=== PATIENT | female | born 1945 | race Caucasian/White ===

== ENCOUNTER → 2016-07-10 | Outpatient (CLI) | payer OTHER ==
[~2016-07-10] MED LIST: CHOL1TAB42 PO; MULT-506 PO; SERT-234 PO; ZCR40 PO
[2016-07-10 17:00] LABS: HEMATOCRIT 38.6 % (37-47); MEAN CELL VOLUME 94.8 fL (80-100); MEAN CORPUSCULAR HGB CONC 32.6 g/dl (32-36); MEAN PLATELET VOLUME 11.4 fL (7.4-10.4); PLATELET COUNT 159 K/uL (130-400); RED BLOOD COUNT 4.07 M/uL (4.2-5.4); WHITE BLOOD COUNT 5.65 K/uL (4.8-10.8)
[2016-07-10 17:20] LABS: ALT/SGPT 25 U/L (12-78); BLOOD UREA NITROGEN 22 mg/dl (7-18); BUN/CREATININE RATIO 27.3 (10-20); CALCIUM 9.2 mg/dl (8.5-10.1); CARBON DIOXIDE 26 mmol/L (21-32); CHLORIDE 107 mmol/L (98-107); CHOLESTEROL 157 mg/dl (0-200); GLUCOSE 100 mg/dl (70-99); POTASSIUM 3.7 mmol/L (3.5-5.1); SODIUM 142 mmol/L (136-145); TRIGLYCERIDES 134 mg/dl (0-150); VERY LOW DENSITY LIPOPROT CALC 27 mg/dl
[2016-07-10 17:31] LABS: ALB/GLOB RATIO 1.1 (0.9-2); ALKALINE PHOSPHATASE 71 U/L (45-117); AST/SGOT 19 U/L (15-37); CHOLESTEROL/HDL RATIO 2.8; HDL CHOLESTEROL 57 mg/dl; LDL CHOLESTEROL CALCULATED 73 mg/dl
== END | disposition home or self-care (01) ==
LOC: C.LABBC 13:54
PROVIDERS: ATTEND Internal Medicine Geriatric Medicine
DX: M19.90 Unspecified osteoarthritis, unspecified site (principal); E78.5 Hyperlipidemia, unspecified; M81.0 Age-related osteoporosis without current pathological fracture; I35.1 Nonrheumatic aortic (valve) insufficiency; M79.7 Fibromyalgia

== ENCOUNTER → 2016-07-24 | Outpatient (CLI) | payer OTHER ==
--- NOTE | 2016-07-24 15:10 | DIAGNOSTIC IMAGING REPORT ---
CHEST 2 VIEWS ROUTINE CLINICAL HISTORY: Z00.00 Health [id number] Acute [id number] BronchitisRAD dyspnea COMPARISON STUDY: 08/30/2015 FINDINGS: Mild emphysematous change. Diaphragms are smooth. There are no focal infiltrates. Mild stable fibrocalcific change pulmonary apices. IMPRESSION: Chronic change. No acute process. Electronically signed by: Kendell Fang M.D. 07/24/2016 3:09 PM Dictated Date/Time: 07/24/2016 3:08 PM
== END | disposition home or self-care (01) ==
LOC: C.RADBC 14:14
PROVIDERS: ATTEND Internal Medicine Geriatric Medicine
DX: Z00.00 Encounter for general adult medical examination without abnormal findings (principal); J20.9 Acute bronchitis, unspecified; J40 Bronchitis, not specified as acute or chronic

== ENCOUNTER → 2016-07-25 | Outpatient (CLI) | payer OTHER ==
--- NOTE | 2016-07-25 11:33 | DIAGNOSTIC IMAGING REPORT ---
RIGHT SHOULDER MIN 2 VIEWS ROUTINE CLINICAL HISTORY: Right shoulder pain. COMPARISON: None FINDINGS: Alignment of the right shoulder is anatomic. There is no acute fracture or suspicious lesion. There is moderate AC joint arthritis and mild glenohumeral joint arthritis. IMPRESSION: 1. Moderate right AC joint arthritis and mild glenohumeral joint arthritis. 2. No acute fracture or dislocation of the right shoulder. Electronically signed by: Alex Vu M.D. 07/25/2016 11:31 AM Dictated Date/Time: 07/25/2016 11:30 AM
== END | disposition home or self-care (01) ==
LOC: C.RADBC 11:16
PROVIDERS: ATTEND Internal Medicine
DX: M25.511 Pain in right shoulder (principal); M19.011 Primary osteoarthritis, right shoulder

== ENCOUNTER → 2017-05-27 | Outpatient (CLI) | payer OTHER ==
--- NOTE | 2017-05-27 14:35 | MAMMOGRAPHY REPORT ---
BILATERAL DIGITAL SCREENING MAMMOGRAM TOMOSYNTHESIS WITH CAD: 05/27/2017 CLINICAL HISTORY: Routine screening. Patient has no complaints. TECHNIQUE: Breast tomosynthesis in addition to standard 2D mammography was performed. Current study was also evaluated with a Computer Aided Detection (CAD) system. COMPARISON: Comparison is made to exams dated: 03/18/2016 mammogram, 03/12/2015 mammogram, 02/28/2014 mammogram, 01/31/2013 mammogram, 01/25/2012 mammogram, and 01/21/2011 mammogram - [facility]. BREAST COMPOSITION: The tissue of both breasts is extremely dense, which lowers the sensitivity of m ammography. FINDINGS: No suspicious masses, calcifications, or areas of architectural distortion are noted in ei ther breast. There has been no significant interval change compared to prior exams. IMPRESSION: ACR BI-RADS CATEGORY 1: NEGATIVE There is no mammographic evidence of malignancy. A 1 year screening mammogram is recommended. The pa tient will receive written notification of the results. Approximately 10% of breast cancers are not detected with mammography. A negative mammographic report should not delay biopsy if a clinically suggestive mass is present. Fernanda Toney M.D. ah/:05/27/2017 12:36:12 Vacuum Forming Machine Operator: Sara ERWIN(Parviz)(M), [facility] letter sent: Normal 1/2 BI-RADS Code: ACR BI-RADS Category 1: Negative
== END | disposition home or self-care (01) ==
LOC: C.MAMM 12:06
PROVIDERS: ATTEND Internal Medicine Geriatric Medicine
DX: Z12.31 Encounter for screening mammogram for malignant neoplasm of breast (principal)

== ENCOUNTER → 2017-07-08 | Outpatient (CLI) | payer OTHER ==
[2017-07-08 13:17] LABS: BASO % 0.6 %; BASO ABS # 0.03 K/uL (0-0.2); EOS % 4.1 %; EOS ABS # 0.21 K/uL (0-0.5); HEMATOCRIT 37.9 % (37-47); HEMOGLOBIN 12.6 g/dL (12.0-16.0); IG# 0.01 K/uL (0.00-0.02); LYMPH % 33.3 %; LYMPH ABS # 1.71 K/uL (1.2-3.4); MEAN CELL VOLUME 98.7 fL (80-100); MEAN CORPUSCULAR HEMOGLOBIN 32.8 pg (25-34); MEAN CORPUSCULAR HGB CONC 33.2 g/dl (32-36); MEAN PLATELET VOLUME 11.1 fL (7.4-10.4); MONO % 13.1 %; MONO ABS # 0.67 K/uL (0.11-0.59); NEUT % 48.7 %; PLATELET COUNT 151 K/uL (130-400); RED CELL DISTRIBUTION WIDTH CV 13.8 % (11.5-14.5); RED CELL DISTRIBUTION WIDTH SD 49.7 fL (36.4-46.3); WHITE BLOOD COUNT 5.13 K/uL (4.8-10.8)
[2017-07-08 14:20] LABS: BLOOD UREA NITROGEN 17 mg/dl (7-18); CALCIUM 8.6 mg/dl (8.5-10.1); CARBON DIOXIDE 26 mmol/L (21-32); CREATININE 0.75 mg/dl (0.60-1.20); GLUCOSE 91 mg/dl (70-99); POTASSIUM 3.9 mmol/L (3.5-5.1); SODIUM 141 mmol/L (136-145)
[2017-07-08 14:31] LABS: CHOLESTEROL 242 mg/dl (0-200); LDL CHOLESTEROL CALCULATED 147 mg/dl
== END | disposition home or self-care (01) ==
LOC: C.LABBC 11:16
PROVIDERS: ATTEND Internal Medicine Geriatric Medicine
DX: E78.5 Hyperlipidemia, unspecified (principal); M81.0 Age-related osteoporosis without current pathological fracture; M79.7 Fibromyalgia

== ENCOUNTER → 2017-08-09 | Outpatient (CLI) | payer OTHER | END | disposition home or self-care (01) | LOC: C.MAMM 08:02 | PROVIDERS: ATTEND Internal Medicine Geriatric Medicine | DX: M81.0 Age-related osteoporosis without current pathological fracture (principal); M85.88 Other specified disorders of bone density and structure, other site ==

== ENCOUNTER 2018-11-02 05:49 | Inpatient (IN) ==
--- NOTE | 2018-10-20 14:01 | PAT Medication Instructions ---
Medication Instructions Date of Service October 20, 2018 Home Medications cholecalciferol (vitamin D3) [Vitamin D3] 4,000 unit PO QAM sertraline 100 mg tablet 150 mg PO DAILY simvastatin 20 mg tablet 20 mg PO DAILY DO NOT take the morning of surgery cholecalciferol (vitamin D3) [Vitamin D3] 4,000 unit PO QAM Take morning of surgery With a small sip of water, OTHERWISE NOTHING TO EAT OR DRINK AFTER MIDNIGHT: sertraline 100 mg tablet 150 mg PO DAILY simvastatin 20 mg tablet 20 mg PO DAILY Other Notes If you have any questions please call us at [phone] or [phone] or [phone] or [phone]
--- NOTE | 2018-10-21 11:22 | Anesthesiology Consultation ---
Date of Service October 21, 2018 Assessment & Plan (1) Encounter for pre-operative examination: - PCP: 10/24/18: "Using the revised cardiac index, she is at low risk for adverse events with non cardiac surgery. She is acceptable risk for surgery." Chart Review Chart Review: Acceptable Risk for Surgery and Patient seen in Pre Admission Testing Teaching & Discussion Pre-Anesthesia Teaching/Discussion Notes: Instructed NPO after midnight before surgery,except medications with 15 cc of water. Medication instructions provided according to the PAT guidelines. History Surgery Operation Date: 11/02/18 10:25 Proposed Procedures p L3-L5 Decompression and Fusion, Spinal Cord Monitoring - Vinicio Herbert, Height/Weight Height: 5 ft 1 in Weight: 55.7 kg Allergies Allergy/AdvReac Type Severity Reaction Status Date / Time simvastatin [From Zocor] AdvReac MUSCULAR Verified 10/24/18 15:25 PAIN sulfamethoxazole AdvReac GI UPSET Verified 10/24/18 15:25 [From Bactrim] trimethoprim [From Bactrim] AdvReac GI UPSET Verified 10/24/18 15:25 Medications Home Medications Medication Instructions Recorded Confirmed Last Taken cholecalciferol (vitamin D3) 4,000 unit PO QAM 07/09/18 10/24/18 07/09/18 [Vitamin D3] sertraline 100 mg tablet 150 mg PO DAILY tab 10/18/18 10/24/18 Unknown simvastatin 20 mg tablet 20 mg PO DAILY #90 tab 10/18/18 10/24/18 Unknown Past Medical History Medical History Anxiety Depression Hx SBO PARTIAL (2015)- MEDICALLY MANAGED Hyperlipidemia Numbness and tingling RIGHT LE/BUTTOCK Exercise / Class Metabolic Activity II 4-5 Yardwork/Stairs/Walk up hill Past Family History Family History Unknown Colon cancer Mother Colon cancer Father Gastric cancer Other No pertinent family history Past Surgical History Surgical History History of abdominal surgery CYST EXCISION History of appendectomy History of open reduction and internal fixation (ORIF) procedure LEFT DISTAL RADIUS Hx of tonsillectomy Hx of tubal ligation Past Anesthesia History No Hx of Anesthesia Complications (EXCEPT POST-OP NAUSEA) and No Family Hx of Anesthesia Complications History of PONV History of PONV and Hx of Motion Sickness Social History Smoking Status: Never smoker Do You Dip or Chew Tobacco: No Hx Alcohol Use: Yes Alcohol type: beer and hard liquor alcohol intake frequency: a few times a week Hx Substance Use: No substance use type: does not use Review of Systems Reflux with certain food triggers. Patient denies chest pain, shortness of breath, dyspnea on exertion, cough, wheezing, palpitations. Physical Exam Vital Signs VITALS BP 115/72 P 71 TEMP 98.2 SP02 95%RA RESP 18 PHYSICAL Full neck and c-spine range of motion. Full TMJ range of motion. TMD 3 finger breaths Mallampati Score 2 Dentition: missing molars, Lungs: clear throughout to auscultation Cardiac: regular rate and rhythm, no murmurs noted Spine: normal Carotid arteries: negative bruit Extremities: no edema Testing Laboratory Results 10/21/18 11:36 10/21/18 11:36 PT 10.7 Seconds (9.0-12.0) 10/21/18 11:36 INR 1.0 (0.9-1.1) 10/21/18 11:36 APTT 25.0 Seconds (21.0-31.0) 10/21/18 11:36 Urine Color Dark Yellow 10/21/18 11:36 Urine Appearance Clear (Clear) 10/21/18 11:36 Urine pH 5.0 (4.5-7.5) 10/21/18 11:36 Ur Specific [place] 1.026 (1.000-1.030) 10/21/18 11:36 Urine Protein Negative (Negative) 10/21/18 11:36 Urine Glucose (UA) Negative (Negative) 10/21/18 11:36 Urine Ketones Trace (Negative) H 10/21/18 11:36 Urine Nitrite Negative (Negative) 10/21/18 11:36 Ur Leukocyte Esterase Negative (Negative) 10/21/18 11:36 Blood Type A Positive 10/21/18 11:36 Antibody Screen NEGATIVE 10/21/18 11:36 Electrocardiogram Date: 07/09/18 NSR at 62bpm. Septal infarct (cited on/before 08/30/2015 per cardio). Chest X-Ray Date: 07/09/18 Findings: + NAD Atherosclerotic calcification of the thoracic aorta. Chronic interstitial thickening and biapical scarring are similar to previous. No airspace consolida tion or large pleural effusion is identified.
[2018-10-21 12:53] LABS: Basophils # (auto) 0.03 K/uL (0-0.2); Basophils % (auto) 0.5 %; Eosinophils % (auto) 3.5 %; Hematocrit (blood only) 36.1 % (37-47); Hemoglobin 11.8 g/dL (12.0-16.0); Immature Granulocytes # (auto) 0.01 K/uL (0.00-0.02); Immature Granulocytes % (auto) 0.2 %; Lymphocytes # (auto) 1.78 K/uL (1.2-3.4); Lymphocytes % (auto) 31.5 %; Mean Corpuscular Hgb Conc 32.7 g/dL (32-36); Mean Corpuscular Volume 98.6 fL (80-100); Mean Platelet Volume 10.4 fL (7.4-10.4); Monocytes % (auto) 10.6 %; Neutrophils # (auto) 3.03 K/uL (1.4-6.5); Neutrophils % (auto) 53.7 %; Platelet Count 189 K/uL (130-400); RDW Standard Deviation 50.4 fL (36.4-46.3); Red Blood Count 3.66 M/uL (4.2-5.4); White Blood Count 5.65 K/uL (4.8-10.8)
[2018-10-21 12:57] LABS: Appearance Urine Clear (Clear); Bilirubin Urine Negative (Negative); Blood Urine Negative (Negative); Color Urine Dark Yellow; Glucose Urine UA Negative (Negative); Ketones Urine Trace (Negative); Leukocyte Esterase Urine Negative (Negative); Nitrite Urine Negative (Negative); Protein Urine Negative (Negative); Specific Gravity Urine 1.026 (1.000-1.030); Urobilinogen Urine Negative (Negative)
[2018-10-21 13:02] LABS: BUN Creatinine Ratio 20.7 (10-20); Calcium 9.1 mg/dl (8.5-10.1); Creatinine Clr Calc Pharmacy 45.4 ml/min; Est GFR (African American) 81.7; Est GFR (Non-African American) 70.5; Potassium 4.1 mmol/L (3.5-5.1)
[2018-10-21 13:06] LABS: Partial Thromboplastin Ratio 0.9; Prothrombin Time 10.7 Seconds (9.0-12.0)
[2018-11-02] MEDS ORDERED: LR 15ML/HR IV SCH (06:00)
[2018-11-02] MEDS ORDERED: ACETAMINOPHEN 500 MG TAB PO SCH (06:00)
[2018-11-02] MEDS ORDERED: CEFAZOLIN 1000MG 1,000 MG/7.5 ML SYR IV SCH ×2 (06:00)
[2018-11-02] MEDS ORDERED: CeleBREX 200 MG CAP PO SCH (06:00)
[2018-11-02] MEDS ORDERED: GABAPENTIN 300 MG CAP PO SCH (06:00)
[2018-11-02] MEDS ORDERED: ATROPINE SULFATE 0.1 MG/ML 10ML SYR IV PRN (07:22)
[2018-11-02] MEDS ORDERED: ePHEDrine sulfate 50 MG/ML AMP IV PRN (07:22)
[2018-11-02] MEDS ORDERED: BUPIVACAINE/EPINEPHRINE 0.5% MPF 1:200,000 30 ML VIAL ONE (07:23)
[2018-11-02] MEDS ORDERED: BACITRACIN INJ 50,000 UNIT VIAL ONE (07:23)
[2018-11-02] MEDS ORDERED: SCOPOLAMINE 1.5 MG TDSY ONE (07:25)
[2018-11-02] MEDS ORDERED: fentaNYL citrate 100 MCG/2 ML VIAL ONE ×3 (07:34→10:11)
[2018-11-02] MEDS ORDERED: MIDAZOLAM HCL 1 MG/ML 2ML VIAL ONE (07:34)
--- NOTE | 2018-11-02 07:37 | History & Physical Bridge Note ---
Date of Service November 02, 2018 History & Physical Bridge Note I have examined the patient, reviewed the History & Physical and in the interval since the performance of the History & Physical I have noted the following changes of clinical significance: no changes noted
--- NOTE | 2018-11-02 07:38 | History & Physical Report ---
Date of Service November 02, 2018 Assessment & Plan (1) Spinal stenosis, lumbar region with neurogenic claudication: L3-L5 decompression and fusion Present on Admission?: Yes History of Present Illness Chief Complaint: Back and leg pain Primary Care Provider: Jitendra Mercer MD This is a 73-year-old female that presents with chronic persistent back and bilateral leg pain. After failing extensive course of nonoperative care is here for surgical intervention. Allergies Allergy/AdvReac Type Severity Reaction Status Date / Time simvastatin [From Zocor] AdvReac MUSCULAR Verified 11/02/18 06:14 PAIN sulfamethoxazole AdvReac GI UPSET Verified 11/02/18 06:14 [From Bactrim] trimethoprim [From Bactrim] AdvReac GI UPSET Verified 11/02/18 06:14 Home Medications Home Medications Medication Instructions Recorded Confirmed Type cholecalciferol (vitamin D3) 4,000 unit PO QAM 07/09/18 11/02/18 History [Vitamin D3] simvastatin 20 mg tablet 20 mg PO DAILY #90 tab 10/18/18 11/02/18 History sertraline 100 mg tablet 150 mg PO DAILY #135 tab 10/29/18 11/02/18 Rx Past Med/Surg History Medical History Anxiety Depression Hx SBO PARTIAL (2015)- MEDICALLY MANAGED Hyperlipidemia Numbness and tingling RIGHT LE/BUTTOCK Surgical History History of open reduction and internal fixation (ORIF) procedure LEFT DISTAL RADIUS Hx of tonsillectomy Hx of tubal ligation History of abdominal surgery CYST EXCISION History of appendectomy Family History Unknown Colon cancer Mother Colon cancer Father Gastric cancer Other No pertinent family history Social History Preferred Language: Indonesian Communication Ability: Effective Beliefs That Will Affect Care: None Current Living Situation: Spouse Feels Safe at Home: Yes Safety Concerns: Feels Safe At This Time Smoking Status: Never smoker Do You Dip or Chew Tobacco: No Second Hand Exposure: No Hx Alcohol Use: Yes Alcohol type: beer and hard liquor Hx Substance Use: No Results & Data Vital Signs (Past 12 Hours) Vital Signs Temp Pulse Resp BP Pulse Ox 11/02/18 06:18 36.5 C 60 18 146/80 H 97
[2018-11-02] MEDS ORDERED: SODIUM CHLORIDE 0.9% 250 ML IV PRN (07:55)
[2018-11-02] MEDS ORDERED: HYDROmorphone INJ 2 MG/ML SYR/VIAL ONE ×2 (08:43→10:16)
[2018-11-02] MEDS ORDERED: ROCURONIUM BROMIDE 10 MG/ML 5 ML VIAL ONE (08:43)
[2018-11-02] MEDS ORDERED: ePHEDrine sulfate 50 MG/ML SYR ONE ×2 (08:43→10:19)
[2018-11-02] MEDS ORDERED: DEXAMETHASONE SOD INJ 4 MG/ML VIAL ONE (08:43)
[2018-11-02] MEDS ORDERED: LIDOCAINE HCL 2% 2 ML VIAL/AMP(20MG/ML) INFIL ONE (08:43)
[2018-11-02] MEDS ORDERED: PROPOFOL IV EMULSION 10 MG/ML 20 ML VIAL IV ONE (08:43)
[2018-11-02] MEDS ORDERED: GLYCOPYRROLATE 0.2 MG/ML VIAL ONE (08:43)
[2018-11-02] MEDS ORDERED: NEOSTIGMINE METHYLSULFATE 1 MG/ML 10ML VIAL ONE (08:43)
[2018-11-02] MEDS ORDERED: ONDANSETRON INJ 2 MG/ML 2 ML VIAL ONE (08:43)
--- NOTE | 2018-11-02 10:12 | Operative Report ---
Post Operative Report Pre & Post Diagnosis Operation Date: 11/02/18 07:45 Pre-Op Diagnosis: Spinal stenosis, lumbar region with neurogenic claudication Post-Op Diagnosis: Spinal stenosis, lumbar region with neurogenic claudication Procedure Operation Date: 11/02/18 07:45 Actual Procedures #1 lumbar decompression with bilateral medial facetectomies foraminotomies L2-3 L3-4 L4-5. #2 posterior spinal fusion L3-4 L4-5 per #3 placement posterior instrumentation L3-4 L4-5 per #4 interbody fusion L4-5 per #5 placement of peek cage 11 x 22 mm at L4-5 per #6 placement of local autograft in the posterior lateral gutters. #7 placement infuse collagen sponge bone mass graft in the posterior lateral gutters and ostial amp and interbody space. Surgeon Vinicio Herbert, Test Desk Trouble Locator Jitendra Villanueva Estimated Blood Loss 175 Findings Consistent with Post-Op Diagnosis Specimens None Indications This is a 73-year-old female who presents with the above-mentioned diagnosis. After failing extensive course of nonoperative care she elected to go the above- mentioned procedure. Description of Procedure Patient was met with identified and informed consent obtained. Patient was then taken back to the operative suite underwent intubation and placed in the prone position the Dayo table on top of the Dylan frame. All bony prominences well-padded eyes inspected to ensure no external pressure placed upon the peer at this point the lumbar spine was prepped and draped in a normal sterile fashion. Sharp dissection with the assistance of Bovie cautery was performed down to and exposing the lamina transverse processes of L3-L4-L5 bilaterally. From a caudal cephalad fashion complete laminectomy of L4 L3 and partial laminectomy of L2 was performed including bilateral medial facetectomies and foraminotomies addressing severe stenosis. Pedicle screws were then placed in L3-L4-L5 bilaterally with assistance of fluoroscopy. By way of a transforaminal approach on the right complete discectomy of L4-5 was performed endplates curetted to subcortical bleeding bone and an 11 x 22 mm peek cage filled with ostium bone graft tapped in position. Proper sized rods were then placed locked into position bilaterally. The transverse processes of L3-L4-L5 bur to subcortical bleeding bone. Infuse collagen sponge mass graft local autograft placed in the posterior lateral gutters. 15 round MAGDA drain inserted. Incision was then closed with 1 Vicryl in the fascia 2-0 Vicryl substantially and 4-0 Monocryl for final skin closure. Steri-Strip sterile dressing placed. Patient will continue to PACU stable condition. Please note Jitendra Villanueva present throughout the entire procedure involved in patient positioning complex portions of the surgery and final skin closure. Lastly spinal cord monitoring was utilized throughout the procedure no changes noted. I attest to the content of the Intraoperative Record and any orders documented therein. Any exceptions are noted below.
[2018-11-02] MEDS ORDERED: FLOSEAL HEMOSTATIC MATRIX 10ML TOP ONE (10:13)
[2018-11-02] MEDS: HYDROmorphone INJ 1 MG/ML SYRINGE IV PRN ×2 (11:03→11:09)
--- NOTE | 2018-11-02 11:20 | Fluoroscopy Report ---
FL lumbar spine 2-3V CLINICAL HISTORY: L3-L5 DECOMPRESSION AND FUSION COMPARISON STUDY: None. FLUOROSCOPY TIME: 22 seconds. 2 fluoroscopic spot images. FINDINGS: Posterior decompression fusion from L3 through L5 with pedicle screws and rods. The hardwar e appears intact. IMPRESSION: Fluoroscopy provided for posterior decompression and fusion from L3 through L5. Electronically signed by: Jose Luis Teixeira M.D. 11/02/2018 11:19 AM
--- NOTE | 2018-11-02 11:28 | Anesthesiology Progress Note ---
Date of Service November 02, 2018 Anesthesia Post Procedure Vital Signs Vital Signs: Temp Pulse Pulse Resp BP BP Pulse Ox 11/02/18 11:20 36.5 C 63 21 114/65 99 11/02/18 11:10 59 L 17 138/69 95 11/02/18 11:00 60 15 131/73 96 11/02/18 10:50 66 14 134/68 100 11/02/18 10:40 70 21 129/64 97 11/02/18 10:30 36.5 C 74 17 146/81 H 100 11/02/18 06:18 36.5 C 60 18 146/80 H 97 Pain Intensity Back: Pain Intensity: 4 Transfer of Care Handoff Completed per policy Notes Mental Status: alert / awake / arousable and participated in evaluation Patient Amnestic to Procedure: Yes Nausea / Vomiting: adequately controlled Pain: adequately controlled Airway Patency, RR, SpO2: stable & adequate BP & HR: stable & adequate Hydration State: stable & adequate Anesthetic Complications: no major complications apparent and Pt Satisfied with anesthetic care
[2018-11-02] MEDS ORDERED: ONDANSETRON INJ 2 MG/ML 2 ML VIAL IV PRN (11:44)
[2018-11-02] MEDS ORDERED: MAGNESIUM HYDROXIDE SUSP 30 ML UDC PO PRN (11:44)
[2018-11-02] MEDS ORDERED: METOCLOPRAMIDE HCL INJ 5 MG/ML 2 ML VIAL IV PRN (11:44)
[2018-11-02] MEDS ORDERED: ALUMINUM/MAGNESIUM SUSP 30 ML UDC PO PRN (11:44)
[2018-11-02] MEDS ORDERED: PROMETHAZINE HCL 12.5 MG in SODIUM CHLORIDE 0.9% 50 ML IV PRN (11:44)
[2018-11-02] MEDS ORDERED: SOD PHOSPHATE/SOD BIPHOSPHATE ENEMA 132 ML BTL PR PRN (11:44)
[2018-11-02] MEDS ORDERED: DO NOT ADMINISTER PNEUMOCOCCAL VACCINE PRN (11:44)
[2018-11-02] MEDS ORDERED: FAMOTIDINE 20 MG TAB PO PRN (11:44)
[2018-11-02] MEDS ORDERED: DO NOT ADMINISTER FLU VACCINE PRN (11:44)
[2018-11-02] MEDS ORDERED: LORazepam 0.5 MG/1 ML VIAL IV PRN (11:44)
[2018-11-02] MEDS ORDERED: ACETAMINOPHEN 1,000 MG/100 ML VIAL IV PRN (11:44)
[2018-11-02] MEDS ORDERED: ACETAMINOPHEN 500 MG TAB PO PRN (11:44)
[2018-11-02] MEDS ORDERED: LORazepam 0.5 MG TAB PO PRN (11:44)
[2018-11-02] MEDS ORDERED: HYDROmorphone INJ 0.5 MG/0.5 ML SYR IV PRN (11:44)
[2018-11-02] MEDS ORDERED: BISACODYL 10 MG SUPP PR PRN (11:44)
[2018-11-02] MEDS ORDERED: ONDANSETRON 4 MG TAB PO PRN (12:00)
[2018-11-02] MEDS: SODIUM CHLORIDE 0.9% 1000ML 1,000 ML IV SCH (12:16)
[2018-11-02] MEDS ORDERED: ESMOLOL HCL INJ 10 MG/ML 10ML VIAL IV ONE (12:50)
[2018-11-02] MEDS ORDERED: KETOROLAC 30 MG/ML VIAL ONE (12:50)
[2018-11-02] MEDS: CEFAZOLIN 1000MG 1,000 MG/7.5 ML SYR IV SCH ×2 (15:19→23:58)
[2018-11-02] MEDS: SIMVASTATIN 20 MG TAB PO SCH (20:37)
[2018-11-02] MEDS: DOCUSATE SODIUM/SENNA 50/8.6MG TAB PO SCH (20:37)
[2018-11-02] MEDS: TRAMADOL HCL 50 MG TABLET PO PRN (20:46)
[2018-11-03] MEDS: SODIUM CHLORIDE 0.9% 1000ML 1,000 ML IV SCH
[2018-11-03] MEDS: POLYETHYLENE (MIRALAX) 17 GM PACK PO SCH ×4 (05:35→23:45)
[2018-11-03 06:34] LABS: Basophils # (auto) 0.01 K/uL (0-0.2); Basophils % (auto) 0.1 %; Eosinophils # (auto) 0.04 K/uL (0-0.5); Eosinophils % (auto) 0.4 %; Hematocrit (blood only) 27.8 % (37-47); Hemoglobin 9.2 g/dL (12.0-16.0); Immature Granulocytes # (auto) 0.02 K/uL (0.00-0.02); Immature Granulocytes % (auto) 0.2 %; Lymphocytes # (auto) 1.68 K/uL (1.2-3.4); Mean Corpuscular Hgb Conc 33.1 g/dL (32-36); Mean Corpuscular Volume 98.9 fL (80-100); Mean Platelet Volume 10.2 fL (7.4-10.4); Monocytes # (auto) 0.96 K/uL (0.11-0.59); Monocytes % (auto) 9.7 %; Neutrophils # (auto) 7.17 K/uL (1.4-6.5); Neutrophils % (auto) 72.6 %; Platelet Count 131 K/uL (130-400); RDW Coefficient of Variation 14.2 % (11.5-14.5); Red Blood Count 2.81 M/uL (4.2-5.4); White Blood Count 9.88 K/uL (4.8-10.8)
[2018-11-03 07:05] LABS: BUN Creatinine Ratio 16.6 (10-20); Calcium 8.6 mg/dl (8.5-10.1); Creatinine Clr Calc Pharmacy 46.6 ml/min; Est GFR (African American) 84.2; Est GFR (Non-African American) 72.6; Potassium 4.3 mmol/L (3.5-5.1)
--- NOTE | 2018-11-03 08:19 | Anesthesiology Progress Note ---
Date of Service November 03, 2018 Anesthesia Post Procedure Vital Signs Vital Signs: Temp Pulse Pulse Resp BP Pulse Ox 11/03/18 07:19 37.0 C 68 18 102/55 L 94 11/03/18 03:26 36.7 C 62 17 102/56 L 97 11/02/18 23:54 65 108/52 L 11/02/18 23:42 36.7 C 67 17 102/49 L 96 11/02/18 20:36 107/66 11/02/18 18:38 36.6 C 64 18 117/57 L 100 11/02/18 15:17 36.3 C L 64 18 112/63 98 11/02/18 13:17 36.3 C L 60 16 112/64 60 L 11/02/18 12:42 70 18 108/60 93 11/02/18 12:03 59 L 14 119/65 97 11/02/18 11:36 36.5 C 68 14 125/64 100 11/02/18 11:20 36.5 C 63 21 114/65 99 11/02/18 11:10 59 L 17 138/69 95 11/02/18 11:00 60 15 131/73 96 11/02/18 10:50 66 14 134/68 100 11/02/18 10:40 70 21 129/64 97 11/02/18 10:30 36.5 C 74 17 146/81 H 100 Notes Mental Status: alert / awake / arousable and participated in evaluation Nausea / Vomiting: adequately controlled Pain: adequately controlled Airway Patency, RR, SpO2: stable & adequate BP & HR: stable & adequate Hydration State: stable & adequate
--- NOTE | 2018-11-03 08:26 | Orthopedic Progress Note ---
Date of Service November 03, 2018 Assessment & Plan (1) Spinal stenosis, lumbar region with neurogenic claudication: At this time we will continue physical therapy monitor her MAGDA output anticipate discharge home this weekend. Present on Admission?: Yes Subjective Back pain controlled leg symptoms markedly improved. Physical Exam Physical Exam: Patient is comfortable. She is good strength testing. Results & Data Vital Signs (Past 12 Hours) Vital Signs Temp Pulse Pulse Resp BP Pulse Ox 11/03/18 07: 37.0 C 68 18 102/55 L 94 11/03/18 03:26 36.7 C 62 17 102/56 L 97 11/02/18 23:54 65 108/52 L 11/02/18 23:42 36.7 C 67 17 102/49 L 96 11/02/18 20:36 107/66
[2018-11-03] MEDS: SERTRALINE HCL 100 MG TABLET PO SCH (09:19)
[2018-11-03] MEDS: CHOLECALCIFEROL 1,000 UNITS TAB PO SCH (09:19)
[2018-11-03] MEDS: TRAMADOL HCL 50 MG TABLET PO PRN ×2 (11:34→23:48)
[2018-11-03] MEDS: OXYCODONE HCL IR 5 MG TAB (IMMEDIATE RELEASE) PO PRN (16:16)
[2018-11-03] MEDS: SIMVASTATIN 20 MG TAB PO SCH (20:23)
[2018-11-03] MEDS: DOCUSATE SODIUM/SENNA 50/8.6MG TAB PO SCH (20:23)
[2018-11-04] MEDS: POLYETHYLENE (MIRALAX) 17 GM PACK PO SCH ×3 (05:42→17:28)
[2018-11-04] MEDS: SERTRALINE HCL 100 MG TABLET PO SCH (07:31)
[2018-11-04] MEDS: CHOLECALCIFEROL 1,000 UNITS TAB PO SCH (07:32)
--- NOTE | 2018-11-04 12:03 | Orthopedic Progress Note ---
Date of Service November 04, 2018 Assessment & Plan (1) Spinal stenosis, lumbar region with neurogenic claudication: At this time we will continue physical therapy monitor her MAGDA output anticipate discharge home tomorrow. Present on Admission?: Yes Subjective Patient's back pain is controlled leg pain markedly improved. Physical Exam Physical Exam: Patient is in the chair at the bedside. She is comfortable. Is good strength testing. Results & Data Vital Signs (Past 12 Hours) Vital Signs Temp Pulse Resp BP Pulse Ox 11/04/18 11:28 92 11/04/18 09:02 36.8 C 78 18 126/77 90
[2018-11-04] MEDS: DOCUSATE SODIUM/SENNA 50/8.6MG TAB PO SCH (20:27)
[2018-11-04] MEDS: SIMVASTATIN 20 MG TAB PO SCH (20:27)
[2018-11-05] MEDS: POLYETHYLENE (MIRALAX) 17 GM PACK PO SCH ×2 (00:11→05:42)
[2018-11-05 06:16] VITALS: PULSE 74; TEMP 98.8; O2SAT 94
[2018-11-05] MEDS: CHOLECALCIFEROL 1,000 UNITS TAB PO SCH (09:39)
[2018-11-05] MEDS: SERTRALINE HCL 100 MG TABLET PO SCH (09:39)
[2018-11-05] MEDS: OXYCODONE HCL IR 5 MG TAB (IMMEDIATE RELEASE) PO PRN (09:42)
--- NOTE | 2018-11-05 10:10 | Discharge Summary ---
Date of Service November 05, 2018 Admission HPI Per Admitting Provider This is a 73-year-old female that presents with chronic persistent back and bilateral leg pain. After failing extensive course of nonoperative care is here for surgical intervention. Principal Diagnosis Lumbar spinal stenosis with radiculopathy Discharge Data Allergies Allergy/AdvReac Type Severity Reaction Status Date / Time simvastatin [From Zocor] AdvReac MUSCULAR Verified 11/02/18 06:14 PAIN sulfamethoxazole AdvReac GI UPSET Verified 11/02/18 06:14 [From Bactrim] trimethoprim [From Bactrim] AdvReac GI UPSET Verified 11/02/18 06:14 Consultations 11/02/18 11:44 Consult Case Management - Discharge Planning Routine Procedures Performed Operation Date: 11/02/18 07:45 Actual Procedures p Decompression and Fusion L3-L5, Insersion of Interbody L4 L5 , Spinal Cord Monitoring, Application of Bone Morphogenetic Protein(Not Applicable) - Vinicio Herbert DO Ordered Studies 11/02/18 10:25 FL fluoroscopy <1hr Routine FL lumbar spine 2-3V Routine Hospital Course (1) Spinal stenosis, lumbar region with neurogenic claudication: Patient underwent lumbar decompression fusion tolerated as well as taken to the orthopedic floor postoperative. Postop day 1 she is up and ambulating nicely. Progressive postop day #2. MAGDA drain decreasing appropriately. Subsequently discharged home on postop day #3. Discharge orders and instructions can be found the chart for further review. Total Time Total Time Spent Total Time Spent (In Minutes): 20 minutes Discharge Plan Discharge Items Patient Disposition: Home - Self-Care Reason For Visit: LUMBAR SPINAL STENOSIS W/NEUROGENIC CLAUDICATION Discharge Diagnosis: Lumbar spinal stenosis with neurogenic claudication Discharge Goals: Decrease discomfort Activity: Per 'Additional Instructions' section Non-emergency contact: Primary Care Provider Call non-emergency contact if: you have any medication questions Follow-up/Referrals: Jitendra Mercer MD [Primary Care Provider] - Diet: Regular Addtl Provider Instructions: ACTIVITY RECOMMENDATIONS: SELF CARE INSTRUCTIONS AFTER THORACIC/LUMBAR FUSIONS 1. You may walk to your tolerance. It is good exercise for your legs and back. Expect some back and intermittent leg aches and pains. 2. You may perform "counter-top" level activities (make a sandwich, rowena with a project, etc.). 3. No bending or lifting of more than 10 pounds or back twisting of any nature (roll like a log when turning in bed). 4. You may ride in a car for 20-30 minutes at a time. No driving until after your first visit with your doctor. 5. Frequent changes of position and restricting sitting to 30 minutes at a time will help limit the amount of back spasms and stiffness you may experience. 6. You may discontinue the use of ambulatory aids (cane, crutches, etc.) once your strength and confidence allow. 7. You may roller die cutting machine operator the shower and let water strike your incision when you arrive home at least once daily. Do not take a tub bath, sit in a hot tub or go into a swimming pool until after your first recheck in the office. SPECIAL CARE INSTRUCTIONS: VERY IMPORTANT TO READ AND REVIEW A. Your surgical incision has been closed with a cosmetic suture under the skin that will dissolve in about 6 weeks. In 14 days, you can use a pair of clean scissors and cut the suture that is left outside of the skin at the ends of your incision. 1. The small skin tapes can be removed 7 days after surgery if they have not fallen off by that point. 2. You may keep the wound open to air as much as possible to promote healing after post-op day number 5 unless told otherwise by your doctor. 3. If you think the wound looks like it is becoming infected (redness or worsening drainage) and/or you are experiencing fever, chill or worsening back pain and muscle spasms, contact the office so that we may evaluate you as soon as possible. B. Complications are uncommon, but please contact us if you have any signs or symptoms of: 1. wound infection (fever higher than 102.5 degrees F, redness, separation of wound, drainage, or increasing pain from the incision) 2. blood clots in legs (pain, swelling, redness and warmth in legs) 3. urinary tract infection (fever higher than 102.5 degrees F, burning upon urination or increased frequency of urination) 4. nerve problems (inability to walk on your toes or heels, numbness, loss of bowel or bladder control) 5. any other symptoms that concern you C. Please call the office at if you have any concerns or questions about your operation or recovery. D. No smoking! Smoking drastically decreases the chance of a solid fusion. E. Do not take any anti-inflammatory medications (Indocin, Advil, Motrin, Aspirin, Naprosyn, etc.) as these may inhibit the chance of a solid fusion. Tylenol is okay to take for pain. MANAGING PAIN AFTER SPINAL SURGERY 1. Narcotic medication is intended for short-term use and will be provided for surgical pain. Surgical pain usually lasts for a period of 4-6 weeks. Narcotic medication includes Percocet, Vicodin, Darvocet, Tylenol #3 or Lortab. 2. Longer-term pain is more appropriately treated with non-narcotic medication such as Tylenol ES. 3. Muscle spasm is not appropriately treated with narcotics. Muscle relaxers such as Soma, Flexeril or Skelaxin can be used along with Tylenol ES. 4. Remember that we all live with some "aches and pains". This is not unusual or uncommon after an injury or as we get older. a. Back pain is expected and may include muscle spasms for 4 to 6 weeks after surgery. The pain should gradually improve. If the pain worsens for no apparent reason, please contact the office. b. Intermittent leg pain may also be experienced and should not be concerned about unless it worsens for no apparent reason. If so, please contact the office. 5. We will provide appropriate medication within the normal guidelines of their prescribed use. We will also be very cautious and aware of potential abuse and extended duration of patients' medication needs. a. Pain medications are for your comfort and to assist with sleep and rest so that the tissue can heal. They are not provided in order to return to normal activity and should not be used through the day. To do so or worsening pain at night can result from ongoing tissue damage and development of tolerance to the prescribed medicine. 6. Please allow 2-3 days to process refills. Prescriptions will not be mailed but must be picked up at the office. FOLLOW UP VISIT: Keep your scheduled follow-up appointment. Any questions, please call the office at . Prescriptions: New tramadol 50 mg Tablet 50 mg PO Q4H PRN (Reason: Pain, Moderate) Qty: 30 RF: 0 oxycodone 5 mg Tablet 5 mg PO Q4H PRN (Reason: Pain, Severe) Qty: 30 RF: 0 Continued sertraline 100 mg tablet 150 mg PO DAILY Qty: 135 RF: 3 simvastatin 20 mg tablet 20 mg PO DAILY Qty: 90 RF: 0 Vitamin D3 4,000 unit Capsule 4,000 unit PO QAM RF: 0 Stand-Alone Forms: [facility] Discharge Orders: Discharge Order (Routine); Ordered 11/05/18 Ordered By: Vinicio Herbert Admission Data Admit Date/Time: 11/02/18 10:20 Attending Provider: Vinicio Herbert Admit Provider: Vinicio Herbert Primary Care Provider: Jitendra Mercer Service: Surgical Services
[2018-11-05 10:17] VITALS: BP 121/68
== END 2018-11-05 13:10 | disposition home or self-care (01) | DRG 455 ==
LOC: ASU 05:49 → 3E 10:20

== ENCOUNTER 2024-02-07 11:11 | Inpatient (IN) ==
[2024-02-07 12:10] LABS: Basophils # (auto) 0.04 K/uL (0.00-0.20); Basophils % (auto) 0.6 %; Eosinophils # (auto) 0.13 K/uL (0.00-0.50); Eosinophils % (auto) 1.8 %; Hematocrit (blood only) 39.3 % (37.0-47.0); Hemoglobin 13.2 g/dl (12.0-16.0); Immature Granulocytes # (auto) 0.03 K/uL (0.01-0.20); Immature Granulocytes % (auto) 0.4 %; Lymphocytes # (auto) 2.48 K/uL (1.20-3.40); Lymphocytes % (auto) 34.7 %; Mean Corpuscular Hemoglobin 32.6 pg (25.0-34.0); Mean Corpuscular Hgb Conc 33.6 g/dL (32.0-36.0); Mean Platelet Volume 10.6 fL (9.4-12.4); Monocytes # (auto) 0.61 K/uL (0.11-0.59); Monocytes % (auto) 8.5 %; Neutrophils # (auto) 3.86 K/uL (1.40-6.50); Platelet Count 202 K/uL (130-400); RDW Standard Deviation 50.6 fL (36.4-46.3); Red Blood Count 4.05 M/uL (4.20-5.40); White Blood Count 7.15 K/ul (4.8-10.8)
[2024-02-07 12:32] LABS: Albumin Globulin Ratio 1.6 (0.9-2); Albumin Level 4.5 gm/dl (3.4-5.0); BUN Creatinine Ratio 23.1 (10-20); Bilirubin,Total 0.7 mg/dl (0.2-1.0); Calcium 9.3 mg/dl (8.6-10.3); Creatinine Clr Calc Pharmacy 49.5 ml/min; Globulin 2.8 gm/dl (2.5-4.0); Potassium 3.8 mmol/L (3.5-5.1); Total Protein 7.3 gm/dl (6.0-8.3)
[2024-02-07] MEDS: ACETAMINOPHEN 1,000 MG/100 ML VIAL IV STA (12:55)
[2024-02-07] MEDS: fentaNYL citrate PF 100 MCG/2 ML VIAL IV PRN (13:41)
--- NOTE | 2024-02-07 14:40 | XRay Report ---
XR femur LT 2V routine CLINICAL HISTORY: Lower extremity trauma. COMPARISON: CT of the abdomen and pelvis January 07, 2018. FINDINGS: This exam is mildly compromised given difficulty positioning. There is an acute displaced proximal left femoral fracture which extends through the lesser trochanter as well as the intertrocha nteric portion of the left femur. No definite involvement of the greater trochanter is noted. Associa ray impacted component of the left femoral neck would be difficult to exclude. There is no distal lef t femoral fracture. IMPRESSION: 1. Acute displaced proximal left femoral fracture which extends through the lesser trochanter and int ertrochanteric portion of the left femur. Extension to the left femoral neck with impacted component would be difficult to exclude. 2. No distal left femoral fracture. ACT 112: Negative or not required by law. Electronically signed by: Alex Vu M.D. 02/07/2024 2:38 PM
--- NOTE | 2024-02-07 14:42 | XRay Report ---
XR pelvis 1-2V routine CLINICAL HISTORY: Hip trauma, fracture suspected, no prior imaging TECHNIQUE: A single frontal view of the pelvis was obtained. Comparison: None available at the time of this dictation. FINDINGS: There is foreshortening of the left femoral neck compatible with an impacted fracture. Posterior fixa tion hardware is seen in the lumbar spine. Soft tissue swelling is seen. IMPRESSION: Partial visualization of a left femoral fracture which is better seen on dedicated femur radiograph. ACT 112: Negative or not required by law. Electronically signed by: Lance Talbot M.D. 02/07/2024 2:41 PM
--- NOTE | 2024-02-07 14:46 | XRay Report ---
SINGLE VIEW CHEST CLINICAL HISTORY: Trauma. Femoral fracture. FINDINGS: An AP supine chest radiograph is compared to study dated 06/06/2021. The cardiomediastinal s ilhouette is top normal for projection noting atherosclerotic calcification of the thoracic aorta. Th e lungs and pleural spaces are clear. No pneumothorax is seen. The skeletal structures are osteopenic . The bony thorax is grossly intact. IMPRESSION: No acute cardiopulmonary abnormality. ACT 112: Negative or not required by law. Electronically signed by: Shankar Melton M.D. 02/07/2024 2:45 PM
--- NOTE | 2024-02-07 14:50 | Emergency Department Note ---
Impression & Plan Acute pain of left hip, Fall, Fracture of proximal end of left femur ED Provider Note ED Provider Note NAME: ALEX JANG AGE:78 SEX: Female : 1945 ARRIVES VIA: EMS INFORMANT: Patient ED PROVIDER(s): Patricia Trevino DO CHIEF COMPLAINT: Fall, left hip and thigh pain HPI: This is a 78-year-old female who presents emergency department following an accidental fall at home. Patient states she was on the third step of a small stepladder and fell landing on concrete. She states she did not hit her head or pass out. She states she landed on her left hip and leg and was unable to get up. She denies any use of antiplatelet or anticoagulation medication. She denies any pain other than at her left hip and proximal femur. No prior history of pain to the left hip or femur. She states she was feeling well and in her usual state of health prior to the fall. PAST MEDICAL HISTORY:See Below PAST SURGICAL HISTORY:See Below FAMILY HISTORY:See Below SOCIAL HISTORY:See Below HOME MEDICATIONS:See Below ALLERGIES:See Below VITALS:See Below PHYSICAL EXAMINATION: GENERAL: alert, uncomfortable appearing, well nourished, mild distress, non- toxic EYE EXAM: normal conjunctiva, PERRL and EOM's grossly intact OROPHARYNX: no exudate, no erythema, lips, buccal mucosa, and tongue normal and mucous membranes are moist NECK: supple, no nuchal rigidity, no adenopathy, non-tender LUNGS: Clear to auscultation. Normal chest wall mechanics, no w/r/r HEART: no murmurs, S1 normal and S2 normal ABDOMEN: abdomen soft, non-tender, normo-active bowel sounds, no masses, no rebound or guarding. BACK: Back is symmetrical on inspection and there is no deformity, no midline tenderness SKIN: no rashes, petechiae, orbruising UPPER EXTREMITIES: upper extremities are grossly normal. FROM, nml pulses b/l. LOWER EXTREMITIES: No pitting edema. FROM RLE, nml pulses b/l. Pain with palpation over the left lateral hip and left proximal thigh, decreased range of motion secondary to pain, sensation intact bilaterally distal lower extremities, patient able to wiggle toes and move ankle NEURO EXAM: Normal sensorium, cranial nerves II-XII grossly intact, normal speech, no facial droop,nogross weakness of arms, no gross weakness of legs. Gross sensation intact. No ataxia. Vital Signs: reviewed and remarkable Differential Diagnosis: Fracture, subluxation, dislocation, contusion, ligamentous injury, neurovascular, sprain, strain, as well as other pathologies. MEDICAL DECISION MAKING: THis is a 78 yo female who presents to the ER after an accidental fall off a ladder. VS stable and patient afebrile. She c/o pain at the left hip and left proximal femur. Labs drawn and sent, IV established, and patient monitored on telemetry. SHe was given IV tylenol and IV fentanyl for pain. Xrays performed and interpreted by me. Patient noted to have left intertrochanteric fx. She was neurvascularly intact. environmental service aide ortho contacted and case discussed with the hospitalist team for additional evaluation and mgmt. Patient no other c/o pain, no other evidence of trauma on exam. I have a low suspicion for additional occult traumatic injury. Patient updated on results and plan, she verbalized understanding and was in agreement. Consultation(s): 1520: Discussed with ANJUM HALE hospitalist team for additional evaluation and management. ER Treatment Provided: See below 1600: Dr. Rodriguez now at bedside. Diagnostics Interpreted By Me: -ECG: Normal sinus at 71, normal axis, normal intervals, nonspecific ST/T wave changes -Cardiac Monitoring: An order was placed for continuous cardiac monitoring. The monitor shows a rate of 70 with normal sinus rhythm. -Laboratory studies: As stated above and show below. -Imaging studies: xr left hip/pelvis: intertrochanteric fx cxr: no fx, no pneumothorax, no cm, no focal consolidation, no pleural effusion Triage Nursing Note Reviewed Prior/Outside Records Reviewed Past Med/Surg History Problem List (Updated 02/07/24 @ 22:22 by Patricia Trevino DO) Coxa valga, congenital Fracture of proximal end of left femur (Acute) Fall (Acute) Acute pain of left hip (Acute) Degenerative disc disease, cervical GERD (gastroesophageal reflux disease) EGD 2006 erosive esophagitis Osteoporosis 11/2021 stable, hx of Reclast and Fosamax tx Hyperlipidemia (Chronic) Depression (Chronic) Spinal stenosis, lumbar region with neurogenic claudication lumbar disc decompression October 2018 /fusion L2- L5 Fibromyalgia (Chronic) Osteoarthritis (Acute) Medical History History of colon polyps FH: colon cancer Aortic regurgitation Echo 2012, asymptomatic History of oral lesions 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 Numbness and tingling RIGHT LE/BUTTOCK Hx SBO PARTIAL (2015)- MEDICALLY MANAGED Depression Anxiety Hyperlipidemia Surgical History History of lumbar spinal fusion (~10/2018) H/O wrist surgery H/O colonoscopy with polypectomy 02/2021 repeat 5 yrs History of abdominal surgery CYST EXCISION History of open reduction and internal fixation (ORIF) procedure LEFT DISTAL RADIUS Hx of tonsillectomy Hx of tubal ligation History of appendectomy Family History Mother , 83 Colon cancer Stroke Father , 86 Gastric cancer Aunt Breast cancer Other No family history of adverse response to anesthesia Denies family history of Ovarian cancer Prostate cancer Myocardial infarction Social History Smoking Status: Never smoker Second Hand Exposure: No; Do You Dip or Chew Tobacco: No; Hx Alcohol Use: Yes Alcohol type: wine Alcohol Intake Frequency: 4 or More x per/Week Hx Substance Use: No Preferred Language: Maltese Communication Ability: Effective Visual Impairment: Limited Hearing Ability: Normal Waiver Analyst Required: No Beliefs That Will Affect Care: None marital status: Current Living Situation: Spouse current occupational status: retired How many Children do You have: 0 Feels Safe at Home: Yes Safety Concerns: Feels Safe At This Time Childhood Exposure to Second-Hand Smoke: No Diet: regular caffeine: Yes (1 cup of coffee daily ) during the past year weight has: remained stable Dental Care, Regularly: Yes Physical Activity Frequency: Daily Seatbelt Use: always Sunscreen Use: Yes (tries to ) Do you think of yourself as: straight/heterosexual Assistive Devices: Glasses Allergies Allergies Allergy/AdvReac Type Severity Reaction Status Date / Time sulfamethoxazole AdvReac Mild GI UPSET Verified 01/31/24 11:47 [From Bactrim] trimethoprim [From Bactrim] AdvReac Mild GI UPSET Verified 01/31/24 11:47 Home Meds Home Medications Medication Instructions Recorded Confirmed magnesium aspart,citrate,oxide 400 mg PO DAILY 10/07/21 02/07/24 vitamin E (dl, acetate) 450 mg 450 mg PO DAILY 10/07/21 02/07/24 (1,000 unit) capsule mecobalamin (vitamin B12) 1,000 1,000 mcg PO DAILY 02/01/23 02/07/24 mcg chewable tablet Previous Rx's Medication Instructions Recorded sertraline 100 mg tablet 100 mg PO QAM #90 tabs 04/08/23 simvastatin 20 mg tablet 20 mg PO HS #90 tabs 06/18/23 Results & Data (ED) Vital Signs Vital Signs - 24 hr 02/07/24 11:10 02/07/24 11:31 02/07/24 11:38 Temperature 35.8 C L Temperature Source Oral Pulse Rate 72 67 Pulse Rate [Left Finger] Respiratory Rate 16 Respiratory Effort / Characteristics Non-Labored Spontaneous Respiratory Depth Normal Respiratory Pattern Regular Blood Pressure 129/61 Blood Pressure [Right Arm] Blood Pressure Mean 83 Blood Pressure Mean [Right Arm] Pulse Oximetry 100 100 Oxygen Delivery Method Room Air Room Air Sepsis Recent Fever Within 48 Hours No Sepsis New/Unexplained Change in Mental Status N/A Sepsis Action Taken by Nursing No Action Required 02/07/24 12:47 02/07/24 13:54 02/07/24 14:32 Temperature Temperature Source Pulse Rate Pulse Rate [Left Finger] 72 72 68 Respiratory Rate 18 20 16 Respiratory Effort / Characteristics Non-Labored Spontaneous Non-Labored Spontaneous Non-Labored Spontaneous Respiratory Depth Normal Normal Normal Respiratory Pattern Regular Regular Blood Pressure Blood Pressure [Right Arm] 163/82 H 142/99 H 140/62 Blood Pressure Mean Blood Pressure Mean [Right Arm] 109 113 88 Pulse Oximetry 99 98 99 Oxygen Delivery Method Room Air Room Air Room Air Sepsis Recent Fever Within 48 Hours Sepsis New/Unexplained Change in Mental Status Sepsis Action Taken by Nursing Laboratory Data 02/07/24 11:25 02/07/24 11:25 Lab Results 02/07/24 Range/Units 11:25 WBC 7.15 (4.8-10.8) K/ul RBC 4.05 L (4.20-5.40) M/uL Hgb 13.2 (12.0-16.0) g/dl Hct 39.3 (37.0-47.0) % MCV 97.0 (80.0-100.0) fL MCH 32.6 (25.0-34.0) pg MCHC 33.6 (32.0-36.0) g/dL RDW Std Deviation 50.6 H (36.4-46.3) fL RDW Coeff of Estella 14.0 (11.5-14.5) % Plt Count 202 (130-400) K/uL MPV 10.6 (9.4-12.4) fL Immature Gran % (Auto) 0.4 % Neut % (Auto) 54.0 % Lymph % (Auto) 34.7 % [place] % (Auto) 8.5 % Eos % (Auto) 1.8 % Baso % (Auto) 0.6 % Neut # (Auto) 3.86 (1.40-6.50) K/uL Lymph # (Auto) 2.48 (1.20-3.40) K/uL [place] # (Auto) 0.61 H (0.11-0.59) K/uL Eos # (Auto) 0.13 (0.00-0.50) K/uL Baso # (Auto) 0.04 (0.00-0.20) K/uL Immature Gran # (Auto) 0.03 (0.01-0.20) K/uL Sodium 140 (136-145) mmol/L Potassium 3.8 (3.5-5.1) mmol/L Chloride 106 (98-107) mmol/L Carbon Dioxide 19 L (21-32) mmol/L Anion Gap 15 H (3-11) BUN 18 (6-23) mg/dl Creatinine 0.78 (0.6-1.2) mg/dl Est Cr Clr Drug Dosing 49.5 ml/min eGFR 77.21 BUN/Creatinine Ratio 23.1 H (10-20) Glucose 123 H (70-99(Fasting)) mg/dl Calcium 9.3 (8.6-10.3) mg/dl Total Bilirubin 0.7 (0.2-1.0) mg/dl AST 16 (13-39) U/L ALT 13 (7-52) U/L Alkaline Phosphatase 68 (34-104) U/L Total Protein 7.3 (6.0-8.3) gm/dl Albumin 4.5 (3.4-5.0) gm/dl Globulin 2.8 (2.5-4.0) gm/dl Albumin/Globulin Ratio 1.6 (0.9-2) Administered Medications Morphine Sulfate (Morphine Sulfate 4 Mg/Ml 1 Ml Carp\Vial) 2 mg IV Q3H PRN PRN Reason: Severe Pain (7,8,9,10) on NRS Stop: 02/21/24 17:56 Last Admin: 02/07/24 18:06 Dose: 2 mg Documented By: EDWARD Ondansetron HCl (Ondansetron Inj 2 Mg/Ml 2 Ml Vial) 4 mg IV Q6H PRN PRN Reason: Nausea Stop: 03/08/24 17:56 Last Admin: 02/07/24 18:06 Dose: 4 mg Documented By: EDWARD Simvastatin (Simvastatin 20 Mg Tab) 20 mg PO HS MARIA Stop: 03/08/24 20:59 Last Admin: 02/07/24 20:10 Dose: 20 mg Documented By: JORDON Discontinued Medications Fentanyl Citrate (Fentanyl Citrate Pf 100 Mcg/2 Ml Vial) 50 mcg IV Q15M PRN PRN Reason: Pain Stop: 02/21/24 13:22 Last Admin: 02/07/24 16:51 Dose: 50 mcg Documented By: Admin: 02/07/24 15:20 Dose: 50 mcg Documented By: Admin: 02/07/24 14:36 Dose: 50 mcg Documented By: Admin: 02/07/24 13:41 Dose: 50 mcg Documented By: EPI Acetaminophen (Ofirmev) 1,000 mg in 100 mls @ 400 mls/hr IV NOW STA Stop: 02/07/24 13:04 Last Infusion: 02/07/24 13:15 Dose: Infused Documented By: Admin: 02/07/24 12:55 Dose: 400 mls/hr Documented By: EPI Prochlorperazine 5 mg/ Syringe 5 mls @ 5 mls/min IV ONE ONE Stop: 02/07/24 19:27 Last Admin: 02/07/24 20:10 Dose: 5 mls/min Documented By: JORDON Morphine Sulfate (Morphine Sulfate 2 Mg/Ml Carp) 1 mg IV NOW STA Stop: 02/07/24 19:24 Last Admin: 02/07/24 20:09 Dose: 1 mg Documented By: JORDON Imaging Data Radiologist's Impression: Femur X-Ray 02/07/24 11:50 XR femur LT 2V routine CLINICAL HISTORY: Lower extremity trauma. COMPARISON: CT of the abdomen and pelvis January 07, 2018. FINDINGS: This exam is mildly compromised given difficulty positioning. There is an acute displaced proximal left femoral fracture which extends through the lesser trochanter as well as the intertrochanteric portion of the left femur. No definite involvement of the greater trochanter is noted. Associated impacted component of the left femoral neck would be difficult to exclude. There is no distal left femoral fracture. IMPRESSION: 1. Acute displaced proximal left femoral fracture which extends through the lesser trochanter and intertrochanteric portion of the left femur. Extension to the left femoral neck with impacted component would be difficult to exclude. 2. No distal left femoral fracture. ACT 112: Negative or not required by law. Electronically signed by: Alex Vu M.D. 02/07/2024 2:38 PM Pelvis X-Ray 02/07/24 11:50 XR pelvis 1-2V routine CLINICAL HISTORY: Hip trauma, fracture suspected, no prior imaging TECHNIQUE: A single frontal view of the pelvis was obtained. Comparison: None available at the time of this dictation. FINDINGS: There is foreshortening of the left femoral neck compatible with an impacted fracture. Posterior fixation hardware is seen in the lumbar spine. Soft tissue swelling is seen. IMPRESSION: Partial visualization of a left femoral fracture which is better seen on dedicated femur radiograph. ACT 112: Negative or not required by law. Electronically signed by: Lance Talbot M.D. 02/07/2024 2:41 PM Chest X-Ray 02/07/24 13:23 SINGLE VIEW CHEST CLINICAL HISTORY: Trauma. Femoral fracture. FINDINGS: An AP supine chest radiograph is compared to study dated 06/06/2021. The cardiomediastinal silhouette is top normal for projection noting atherosclerotic calcification of the thoracic aorta. The lungs and pleural spaces are clear. No pneumothorax is seen. The skeletal structures are osteopenic. The bony thorax is grossly intact. IMPRESSION: No acute cardiopulmonary abnormality. ACT 112: Negative or not required by law. Electronically signed by: Shankar Melton M.D. 02/07/2024 2:45 PM Discharge Plan Visit Data Chief Complaint: Leg Injury/Pain Stated Complaint: FALL ED Provider: Patricia Trevino Discharge Problem: Acute pain of left hip, Fall, Fracture of proximal end of left femur Patient Disposition: Admitted As Inpatient Discharge Instructions Interventions: ED Discharge Assessment Last Done: 02/07/24 17:58
--- NOTE | 2024-02-07 15:18 | History & Physical Report ---
Date of Service February 07, 2024 Assessment & Plan (1) Fracture of proximal end of left femur: Plan: Patient fell off a 3 step ladder on 02/06 Left femur x-ray on arrival reveals an acute displaced proximal left femur fracture Activity: Bedrest EKG ordered, pending Revised cardiac risk index: 0 points (class I risk) Orthopedic surgery consult appreciated Will plan to go to the OR on 02/07 N.p.o. at midnight Pain control with IV acetaminophen and morphine as needed Continuous pulse oximetry IV antiemetics A.m. CBC, BMP, mag (2) Fall: Plan: PT/OT consult planned for the afternoon of 02/07 Fall precautions (3) Depression: Plan: Continue sertraline (4) Hyperlipidemia: Plan: Continue simvastatin Plan Disposition: Admit to [facility] Full code Regular diet, then n.p.o. at midnight VTE PPx: Hold chemical DVT PPx in the setting of acute femur fracture/potential surgery History of Present Illness Chief Complaint: Fall, left leg pain Primary Care Provider: Self, Referred Vicky is a 78-year-old female with PMH of osteoarthritis, fibromyalgia, spinal stenosis, HLD, depression, and GERD. She presented on 02/06 after sustaining a fall off of a 3 step ladder. Patient reports this was an unwitnessed fall. She was trying to hang something up on a shelf when she fell onto her left side. No LOC. No head strike. She denies blood thinner usage. She does have a history of falls, but denies any prior injuries to her left leg. She does not ambulate with a walker or cane at baseline. No hardware in the left leg, but does have history of lower back surgery. On arrival she endorses 8/10 pain in her left hip/leg when she is not moving, and 10/10 pain when she is moving. No radiation down the leg or into the upper back. She did not take any pain medicine prior to coming in. She characterizes it as a constant aching pain with intermittent sharp pain like a "knife" into her leg. Patient took her regular morning medications today; no recent change in medications. She lives at home with her . She denies smoking, tobacco use, recent alcohol use. No past cardiac hx. No PMHx of ME, stroke, or CHF. Patient's vitals are stable at time of admission. ED course: Fentanyl 50 mcg IV x 2 Acetaminophen 1000 g IV ROS: Patient endorses severe left upper leg pain, Patient denies fever, chills, night-sweats, dizziness/lightheadedness, MEHTA, chest pain, SOB, abdominal pain, nausea, vomiting, changes in urinary/bowel habits, or numbness/tingling in the left leg. Allergies Allergy/AdvReac Type Severity Reaction Status Date / Time sulfamethoxazole AdvReac Mild GI UPSET Verified 01/31/24 11:47 [From Bactrim] trimethoprim [From Bactrim] AdvReac Mild GI UPSET Verified 01/31/24 11:47 Home Medications Medication Instructions Recorded Confirmed Type magnesium aspart,citrate,oxide 400 mg PO DAILY 10/07/21 02/07/24 History vitamin E (dl, acetate) 450 mg 450 mg PO DAILY 10/07/21 02/07/24 History (1,000 unit) capsule mecobalamin (vitamin B12) 1,000 1,000 mcg PO DAILY 02/01/23 02/07/24 History mcg chewable tablet sertraline 100 mg tablet 100 mg PO QAM #90 tabs 04/08/23 02/07/24 Rx simvastatin 20 mg tablet 20 mg PO HS #90 tabs 06/18/23 02/07/24 Rx Past Med/Surg History Problem List (Updated 02/07/24 @ 16:29 by Bebeto Rodriguez MD) Coxa valga, congenital Fracture of proximal end of left femur Fall (Acute) Acute pain of left hip (Acute) Degenerative disc disease, cervical GERD (gastroesophageal reflux disease) EGD 2006 erosive esophagitis Osteoporosis 11/2021 stable, hx of Reclast and Fosamax tx Hyperlipidemia (Chronic) Depression (Chronic) Spinal stenosis, lumbar region with neurogenic claudication lumbar disc decompression October 2018 /fusion L2- L5 Fibromyalgia (Chronic) Osteoarthritis (Acute) Medical History History of colon polyps FH: colon cancer Aortic regurgitation Echo 2012, asymptomatic History of oral lesions 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 Numbness and tingling RIGHT LE/BUTTOCK Hx SBO PARTIAL (2015)- MEDICALLY MANAGED Depression Anxiety Hyperlipidemia Surgical History History of lumbar spinal fusion (~10/2018) H/O wrist surgery H/O colonoscopy with polypectomy 02/2021 repeat 5 yrs History of abdominal surgery CYST EXCISION History of open reduction and internal fixation (ORIF) procedure LEFT DISTAL RADIUS Hx of tonsillectomy Hx of tubal ligation History of appendectomy Family History Mother , 83 Colon cancer Stroke Father , 86 Gastric cancer Aunt Breast cancer Other No family history of adverse response to anesthesia Denies family history of Ovarian cancer Prostate cancer Myocardial infarction Social History Smoking Status: Never smoker Second Hand Exposure: No; Do You Dip or Chew Tobacco: No; Hx Alcohol Use: Yes Alcohol type: wine Alcohol Intake Frequency: 4 or More x per/Week Hx Substance Use: No Preferred Language: Cambodian Communication Ability: Effective Visual Impairment: Limited Hearing Ability: Normal 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 Beliefs That Will Affect Care: None marital status: Current Living Situation: Spouse current occupational status: retired How many Children do You have: 0 Feels Safe at Home: Yes Childhood Exposure to Second-Hand Smoke: No Diet: regular caffeine: Yes (1 cup of coffee daily ) during the past year weight has: remained stable Dental Care, Regularly: Yes Physical Activity Frequency: Daily Seatbelt Use: always Sunscreen Use: Yes (tries to ) Do you think of yourself as: straight/heterosexual Assistive Devices: Glasses Review of Systems Review of Systems: See HPI above Physical Exam Physical Exam: General: Moderate physical distress secondary to left leg pain; non-toxic appearing; frail appearing; cooperative; SpO2 99% on RA HEENT: normocephalic, atraumatic; no scleral icterus; PERRLA; vision and hearing grossly intact Neck: supple; no lymphadenopathy; trachea midline Skin: warm, dry without signs of tenting; no cyanosis; no rashes, bruising, lesions, or erythema noted CV: chest wall NTP; RRR; S1/S2 normal; no murmurs/rubs/gallops; pulses intact and symmetric at radial, DP, and PT Lungs: no acute respiratory distress; symmetrical chest wall expansion; clear breath sounds across all lung [place] w/o adventitious sounds; no wheezing ABD: Soft, NTP; BS present; no rebound/guarding; no distention MSK: no tics or fasciculations; no edema noted in the LEs b/l, nonerythematous LLE: Patient demonstrates ability to wiggle toes/plantarflex/dorsiflex bilaterally; she is neurovascularly intact in lower extremities bilaterally assessed at DP/PT; left hip is NTP; no signs of active bleeding or bruising appreciated Neuro: A&Ox3; normal mood and affect; fluent speech; no focal deficits; she reports sensation is intact and symmetric in the lower extremities bilaterally assessed via light touch Results & Data Results & Data Vital Signs (Past 12 Hours) Vital Signs Temp Pulse Pulse Resp BP BP Pulse Ox 02/07/24 14:32 68 16 140/62 99 02/07/24 13:54 72 20 142/99 H 98 02/07/24 12:47 72 18 163/82 H 99 02/07/24 11:38 100 02/07/24 11:31 67 02/07/24 11:10 35.8 C L 72 16 129/61 100 O2 Del Method 02/07/24 14:32 Room Air 02/07/24 13:54 Room Air 02/07/24 12:47 Room Air 02/07/24 11:38 Room Air 02/07/24 11:31 02/07/24 11:10 Room Air Laboratory Results Abnormal lab results 02/07/24 Range/Units 11:25 RBC 4.05 L (4.20-5.40) M/uL RDW Std Deviation 50.6 H (36.4-46.3) fL [place] # (Auto) 0.61 H (0.11-0.59) K/uL Carbon Dioxide 19 L (21-32) mmol/L Anion Gap 15 H (3-11) BUN/Creatinine Ratio 23.1 H (10-20) Glucose 123 H (70-99(Fasting)) mg/dl Diagnostic Findings Femur X-Ray 02/07/24 11:50 XR femur LT 2V routine CLINICAL HISTORY: Lower extremity trauma. COMPARISON: CT of the abdomen and pelvis January 07, 2018. FINDINGS: This exam is mildly compromised given difficulty positioning. There is an acute displaced proximal left femoral fracture which extends through the lesser trochanter as well as the intertrochanteric portion of the left femur. No definite involvement of the greater trochanter is noted. Associated impacted component of the left femoral neck would be difficult to exclude. There is no distal left femoral fracture. IMPRESSION: 1. Acute displaced proximal left femoral fracture which extends through the lesser trochanter and intertrochanteric portion of the left femur. Extension to the left femoral neck with impacted component would be difficult to exclude. 2. No distal left femoral fracture. ACT 112: Negative or not required by law. Electronically signed by: Alex Vu M.D. 02/07/2024 2:38 PM Pelvis X-Ray 02/07/24 11:50 XR pelvis 1-2V routine CLINICAL HISTORY: Hip trauma, fracture suspected, no prior imaging TECHNIQUE: A single frontal view of the pelvis was obtained. Comparison: None available at the time of this dictation. FINDINGS: There is foreshortening of the left femoral neck compatible with an impacted fracture. Posterior fixation hardware is seen in the lumbar spine. Soft tissue swelling is seen. IMPRESSION: Partial visualization of a left femoral fracture which is better seen on dedicated femur radiograph. ACT 112: Negative or not required by law. Electronically signed by: Lance Talbot M.D. 02/07/2024 2:41 PM Chest X-Ray 02/07/24 13:23 SINGLE VIEW CHEST CLINICAL HISTORY: Trauma. Femoral fracture. FINDINGS: An AP supine chest radiograph is compared to study dated 06/06/2021. The cardiomediastinal silhouette is top normal for projection noting atherosclerotic calcification of the thoracic aorta. The lungs and pleural spaces are clear. No pneumothorax is seen. The skeletal structures are osteopenic. The bony thorax is grossly intact. IMPRESSION: No acute cardiopulmonary abnormality. ACT 112: Negative or not required by law. Electronically signed by: Shankar Melton M.D. 02/07/2024 2:45 PM ECG Additional Comments: ECG ordered, pending Code Status & VTE Plan Code Status Full code (she reports that she would want her to be medical proxy in an emergency situation) VTE Prophylaxis Plan VTE Prophylaxis will be ordered: Yes Supervising Physician Co-Signing Physician Notes Patient seen and examined, chart reviewed, case discussed with Jose Luis Gerard PA-C and I agree with the assessment and plan as above except as otherwise noted Labs and images reviewed Vicky is a 78-year-old female with a past medical history of osteoarthritis, fibromyalgia, spinal stenosis, hyperlipidemia, GERD, depression with a mechanical fall after falling off a 3 step ladder unwitnessed. She did not strike her head or lose consciousness. Had immediate 8/10 pain in the left hip and leg. EKG normal sinus rhythm without acute ischemic changes No leukocytosis Creatinine 0.78, no history of renal dysfunction Femur x-ray: Acute displaced proximal left femoral fracture which extends to the lesser trochanter and intertrochanteric portion of the left femur orthopedics consulted No history of DM/insulin use Sensation to soft touch intact in feet bilaterally. PT pulses intact to doppler Agree w/ assessment and management as above. Pending surgical repair of left hip. RCRI class I. Acceptable risk for surgical intervention. She is not anticoagulated or on antiplatelet agents. PG Care Time/CCT Total # of Minutes Spent Total Time Spent with Patient: Total time spent is greater than 50% in coordination of care (as documented) at patient's floor/unit and/or counseling patient: Coding [place] [address] INT INP/OBS CARE 2/55MIN Patient Type Established Medical Decision Making Moderate Complexity Diagnoses Fracture of proximal end of left femur S72.002A Fall W19.XXXA Depression F32.9 Hyperlipidemia E78.5
--- NOTE | 2024-02-07 16:23 | Orthopedic Consultation ---
Date of Consultation February 07, 2024 Assessment & Plan (1) Fracture of proximal end of left femur: I discussed the diagnosis with the patient. Treatment options were reviewed. Surgery is indicated to restore her ability to ambulate. I reviewed the risks and benefits of surgery, alternatives to surgery, and expected outcomes. After reviewing all these she elected to proceed. All questions were answered. Informed consent was signed. Surgical site was marked. Patient has coxa valga alignment. She also has osteoporosis. These 2 factors increase the complexity of her problem and surgical fixation. I spoke with the implant merchandiser retail representative to order and some special implants that hopefully will be in tomorrow morning to better accommodate her anatomy. Will plan on doing her surgery tomorrow around noon assuming the equipment is available as planned. She should be n.p.o. after midnight tonight. Ok to eat tonight. Bedrest for activity. (2) Coxa valga, congenital: History of Present Illness Reason for Consultation: Left hip fracture Attending Physician: Dr. Fiore History of Present Illness Vicky is a 78-year-old female with PMH of osteoarthritis, fibromyalgia, spinal stenosis, HLD, depression, and GERD. She presented on 02/06 after sustaining a fall off of a 3 step ladder. Patient reports this was an unwitnessed fall. She was trying to hang something up on a shelf when she fell onto her left side. No LOC. No head strike. She denies blood thinner usage. She does have a history of falls, but denies any prior injuries to her left leg. She does not ambulate with a walker or cane at baseline. No hardware in the left leg, but does have history of lower back surgery. On arrival she endorses 8/10 pain in her left hip/leg when she is not moving, and 10/10 pain when she is moving. No radiation down the leg or into the upper back. She did not take any pain medicine prior to coming in. She characterizes it as a constant aching pain with intermittent sharp pain like a "knife" into her leg. Patient took her regular morning medications today; no recent change in medications. She lives at home with her . She denies smoking, tobacco use, recent alcohol use. No past cardiac hx. No PMHx of DC, stroke, or CHF. Patient's vitals are stable at time of admission. Orthopedics was consulted after x-rays showed an intertrochanteric femur fracture on the left hip. Patient seen and examined the emergency room. She denies pain in other parts of her body. No prior history of injuries to the left hip. As stated above, she has had back surgery by Dr. Herbert in the past. She reports that her house is all on 1 level and that her is in okay condition medically himself although he is also 80 years old. Denies numbness or tingling down her leg. Allergies Allergy/AdvReac Type Severity Reaction Status Date / Time sulfamethoxazole AdvReac Mild GI UPSET Verified 01/31/24 11:47 [From Bactrim] trimethoprim [From Bactrim] AdvReac Mild GI UPSET Verified 01/31/24 11:47 Home Medications Medication Instructions Recorded Confirmed Type magnesium aspart,citrate,oxide 400 mg PO DAILY 10/07/21 02/07/24 History vitamin E (dl, acetate) 450 mg 450 mg PO DAILY 10/07/21 02/07/24 History (1,000 unit) capsule mecobalamin (vitamin B12) 1,000 1,000 mcg PO DAILY 02/01/23 02/07/24 History mcg chewable tablet sertraline 100 mg tablet 100 mg PO QAM #90 tabs 04/08/23 02/07/24 Rx simvastatin 20 mg tablet 20 mg PO HS #90 tabs 06/18/23 02/07/24 Rx Patient History Medical History History of colon polyps FH: colon cancer Aortic regurgitation Echo 2012, asymptomatic History of oral lesions 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 Numbness and tingling RIGHT LE/BUTTOCK Hx SBO PARTIAL (2015)- MEDICALLY MANAGED Depression Anxiety Hyperlipidemia Surgical History History of lumbar spinal fusion (~10/2018) H/O wrist surgery H/O colonoscopy with polypectomy 02/2021 repeat 5 yrs History of abdominal surgery CYST EXCISION History of open reduction and internal fixation (ORIF) procedure LEFT DISTAL RADIUS Hx of tonsillectomy Hx of tubal ligation History of appendectomy Family History Mother , 83 Colon cancer Stroke Father , 86 Gastric cancer Aunt Breast cancer Other No family history of adverse response to anesthesia Denies family history of Ovarian cancer Prostate cancer Myocardial infarction Social History Smoking Status: Never smoker Second Hand Exposure: No; Do You Dip or Chew Tobacco: No; Hx Alcohol Use: Yes Alcohol type: wine Alcohol Intake Frequency: 4 or More x per/Week Hx Substance Use: No Preferred Language: New Zealander Communication Ability: Effective Visual Impairment: Limited Hearing Ability: Normal Cit[employer] Architect Required: No Beliefs That Will Affect Care: None marital status: Current Living Situation: Spouse current occupational status: retired How many Children do You have: 0 Feels Safe at Home: Yes Childhood Exposure to Second-Hand Smoke: No Diet: regular caffeine: Yes (1 cup of coffee daily ) during the past year weight has: remained stable Dental Care, Regularly: Yes Physical Activity Frequency: Daily Seatbelt Use: always Sunscreen Use: Yes (tries to ) Do you think of yourself as: straight/heterosexual Assistive Devices: Glasses Physical Exam Physical Exam: Pleasant female resting supine in bed in no acute distress. Alert and oriented x 3. Neurovascular exam reveals her to have nonpalpable dorsalis pedis or posterior tibial pulses. I was able to Doppler her posterior tib pulses and marked this on the skin. Was not able to Doppler her dorsalis pedis pulse however. She is sensation intact to moving light touch in the dorsal and plantar aspects of the foot. Left hip exam shows her skin to be intact. The left lower extremity is shortened and externally rotated. Results & Data Vital Signs (Past 12 Hours) Vital Signs Temp Pulse Pulse Resp BP BP Pulse Ox 02/07/24 14:32 68 16 140/62 99 02/07/24 13:54 72 20 142/99 H 98 02/07/24 12:47 72 18 163/82 H 99 02/07/24 11:38 100 02/07/24 11:31 67 02/07/24 11:10 35.8 C L 72 16 129/61 100 O2 Del Method 02/07/24 14:32 Room Air 02/07/24 13:54 Room Air 02/07/24 12:47 Room Air 10/14/24 11:38 Room Air 02/07/24 11:31 02/07/24 11:10 Room Air Diagnostic Findings X-rays show a displaced intertrochanteric femur fracture extending into the subtrochanteric region. Patient has coxa valga in both hips
[2024-02-07] MEDS ORDERED: MoRPHine SULFATE 2 MG/ML CARP IV PRN ×2 (17:57→23:55)
[2024-02-07] MEDS: MoRPHine SULFATE 4 MG/ML 1 ML CARP\\VIAL IV PRN (18:06)
[2024-02-07] MEDS: ONDANSETRON INJ 2 MG/ML 2 ML VIAL IV PRN (18:06)
[2024-02-07] MEDS: MoRPHine SULFATE 2 MG/ML CARP IV STA (20:09)
[2024-02-07] MEDS: SIMVASTATIN 20 MG TAB PO SCH (20:10)
[2024-02-07] MEDS: PROCHLORPERAZINE 5 MG in SYRINGE 4 ML IV ONE (20:10)
--- NOTE | 2024-02-08 06:40 | Hospitalist Progress Note ---
Date of Service February 08, 2024 Assessment & Plan (1) Fracture of proximal end of left femur: Plan: S/p fall from 3 step ladder on 02/06 Left femur x-ray on arrival - acute displaced proximal left femur fracture Orthopedic surgery consulted: Surgery planned for 02/07 @1200 Pain control with IV acetaminophen and morphine as needed Will need PT/OT evals post-op, likely SNF vs acute rehab placement A.m. CBC, BMP, mag (2) Fall: Plan: PT/OT consult planned for the afternoon of 02/07 Fall precautions (3) Depression: Plan: Continue sertraline (4) Hyperlipidemia: Plan: Continue simvastatin (5) Coxa valga, congenital: (6) Osteoporosis: Plan: DXA 11/2023 with FRAX 10 year probability of major osteoporotic fracture of 32.8% and hip fracture 12.4% Consider starting bisphosphonate therapy in outpatient setting. Plan Disposition: MedSurg Full code Resume regular diet post-op VTE PPx: plan to start chemical VTE ppx in post-op setting pending ortho recs Admission and Anticipated Discharge Date Admission Date: February 07, 2024 Supervising Physician Co-Signing Physician Notes Attending Physician Supervision Note: I independently interviewed and examined the patient and verified the [place] history and physical, reviewed labs and image studies and agree with findings and care plan noted above. Subjective Patient seen at bedside this morning, notes that pain ongoing, minimal improvement with medication, just took Tylenol, unsure when last dose of morphine was. Does not use walker or cane at baseline, lives in single story home with . Denies CP, SOB, fevers/chills. Review of Systems Review of Systems: as per HPI Physical Exam Physical Exam: General: Alert and oriented. No acute distress Cardiac: Regular rate and rhythm, no murmurs appreciated Respiratory: Lungs clear to auscultation bilaterally, No increased work of breathing Abdominal: Soft, non-tender, non-distended. Extremities: distal LEs neurovascularly intact Results & Data Results & Data Vital Signs (Past 12 Hours) Vital Signs Temp Pulse Resp BP Pulse Ox O2 Del Method 02/07/24 20:26 36.7 C 74 16 131/66 98 Room Air 02/07/24 20:15 Room Air Resident Activity Tracking Resident Involvement: Resident Care Provided Care Provided: Adult Hospital Medicine (6) Osteoporosis Osteoporosis type: unspecified Presence of current pathological fracture: unspecified Qualified Code(s): M81.0 - Age-related osteoporosis without current pathological fracture
[2024-02-08 06:41] LABS: Basophils # (auto) 0.03 K/uL (0.00-0.20); Basophils % (auto) 0.3 %; Eosinophils # (auto) 0.01 K/uL (0.00-0.50); Eosinophils % (auto) 0.1 %; Hematocrit (blood only) 34.2 % (37.0-47.0); Hemoglobin 11.4 g/dl (12.0-16.0); Immature Granulocytes # (auto) 0.07 K/uL (0.01-0.20); Immature Granulocytes % (auto) 0.6 %; Lymphocytes # (auto) 1.09 K/uL (1.20-3.40); Mean Corpuscular Hemoglobin 32.7 pg (25.0-34.0); Mean Corpuscular Hgb Conc 33.3 g/dL (32.0-36.0); Mean Platelet Volume 10.3 fL (9.4-12.4); Monocytes # (auto) 1.01 K/uL (0.11-0.59); Monocytes % (auto) 9.2 %; Neutrophils # (auto) 8.74 K/uL (1.40-6.50); Neutrophils % (auto) 79.8 %; Platelet Count 168 K/uL (130-400); RDW Coefficient of Variation 14.2 % (11.5-14.5); RDW Standard Deviation 50.8 fL (36.4-46.3); Red Blood Count 3.49 M/uL (4.20-5.40); White Blood Count 10.95 K/ul (4.8-10.8)
[2024-02-08 07:03] LABS: BUN Creatinine Ratio 19.1 (10-20); Calcium 8.3 mg/dl (8.6-10.3); Creatinine Clr Calc Pharmacy 56.8 ml/min; Potassium 4.4 mmol/L (3.5-5.1)
[2024-02-08] MEDS: ACETAMINOPHEN 1,000 MG/100 ML VIAL IV PRN (07:38)
[2024-02-08] MEDS: MoRPHine SULFATE 2 MG/ML CARP IV PRN (09:18)
[2024-02-08] MEDS: SERTRALINE HCL 100 MG TABLET PO SCH (09:29)
[2024-02-08] MEDS: MAGNESIUM OXIDE 400 MG TAB PO SCH (09:29)
--- NOTE | 2024-02-08 09:32 | Electrocardiogram Report ---
Test Reason : Blood Pressure : */* mmHG Vent. Rate : 71 BPM Atrial Rate : 71 BPM P-R Int : 174 ms QRS Dur : 84 ms QT Int : 444 ms P-R-T Axes : 57 -18 41 degrees QTcB Int : 482 ms Normal sinus rhythm Normal ECG When compared with ECG of 24-Mar-2021 10:59, No significant change Confirmed by Johnny Meneses ([id number]) on 02/08/2024 9:32:15 AM Referred By: REFERRED SELF Confirmed By: Johnny Meneses
--- NOTE | 2024-02-08 09:44 | Orthopedic Progress Note ---
Date of Service February 08, 2024 Assessment & Plan (1) Fracture of proximal end of left femur: Plan: Patient has been n.p.o. since midnight. She is in agreement for surgical intervention today and signed consent yesterday. She is fairly comfortable as long as she does not move She had questions about her mobility after the surgery. I had a discussion with her about being weightbearing as tolerated on the left lower extremity with the assistance of a walker. I also advised her that she will most likely need to go to either a [facility] or rehab facility following the surgery. (2) Coxa valga, congenital: Admission and Anticipated Discharge Date Admission Date: February 07, 2024 Supervising Physician Co-Signing Physician Notes Agree with above note. Answered all questions for patient and her Bill. Proceed to OR today. Readmit to medicine after surgery. Subjective This 78-year-old female seen for follow-up of a left hip intertrochanteric fracture that she sustained yesterday after she fell from a stepladder. Patient understands that she is going to have surgery this afternoon. She states she has significant pain in her anterior hip and groin area. She is unable to move the leg. She denies numbness or tingling in her toes. She has no other complaints such as chest pain, shortness of breath, fever, chills, sweats, nausea, vomiting, diarrhea or difficulty voiding. Review of Systems Review of Systems: All systems reviewed & are unremarkable except as noted in Subjective Physical Exam Physical Exam: Left lower extremity: Patient is shortened and externally rotated with her knee slightly flexed. She has significant pain with logroll testing. She is unable to perform active straight leg raise test. She is able to actively dorsi and plantarflex her foot. Her peripheral pulses are 2+. She is neurovascularly intact in the left lower extremity. Results & Data Vital Signs (Past 12 Hours) Vital Signs Temp Pulse Resp BP Pulse Ox O2 Del Method 02/08/24 07:22 36.5 C 77 16 116/65 98 Room Air Diagnostic Findings Laboratory Results WBC 10.95 K/ul (4.8-10.8) H 02/08/24 06:09 RBC 3.49 M/uL (4.20-5.40) L 02/08/24 06:09 Hgb 11.4 g/dl (12.0-16.0) L 02/08/24 06:09 Hct 34.2 % (37.0-47.0) L 02/08/24 06:09 MCV 98.0 fL (80.0-100.0) 02/08/24 06:09 MCH 32.7 pg (25.0-34.0) 02/08/24 06:09 MCHC 33.3 g/dL (32.0-36.0) 02/08/24 06:09 RDW Std Deviation 50.8 fL (36.4-46.3) H 02/08/24 06:09 RDW Coeff of Estella 14.2 % (11.5-14.5) 02/08/24 06:09 Plt Count 168 K/uL (130-400) 02/08/24 06:09 MPV 10.3 fL (9.4-12.4) 02/08/24 06:09 Immature Gran % (Auto) 0.6 % 02/08/24 06:09 Neut % (Auto) 79.8 % 02/08/24 06:09 Lymph % (Auto) 10.0 % 02/08/24 06:09 [place] % (Auto) 9.2 % 02/08/24 06:09 Eos % (Auto) 0.1 % 02/08/24 06:09 Baso % (Auto) 0.3 % 02/08/24 06:09 Neut # (Auto) 8.74 K/uL (1.40-6.50) H 02/08/24 06:09 Lymph # (Auto) 1.09 K/uL (1.20-3.40) L 02/08/24 06:09 [place] # (Auto) 1.01 K/uL (0.11-0.59) H 02/08/24 06:09 Eos # (Auto) 0.01 K/uL (0.00-0.50) 02/08/24 06:09 Baso # (Auto) 0.03 K/uL (0.00-0.20) 02/08/24 06:09 Immature Gran # (Auto) 0.07 K/uL (0.01-0.20) 02/08/24 06:09 Sodium 137 mmol/L (136-145) 02/08/24 06:09 Potassium 4.4 mmol/L (3.5-5.1) 02/08/24 06:09 Chloride 104 mmol/L (98-107) 02/08/24 06:09 Carbon Dioxide 26 mmol/L (21-32) 02/08/24 06:09 Anion Gap 7 (3-11) 02/08/24 06:09 BUN 13 mg/dl (6-23) 02/08/24 06:09 Creatinine 0.68 mg/dl (0.6-1.2) 02/08/24 06:09 Est Cr Clr Drug Dosing 56.8 ml/min 02/08/24 06:09 eGFR 88.54 02/08/24 06:09 BUN/Creatinine Ratio 19.1 (10-20) 02/08/24 06:09 Glucose 132 mg/dl (70-99(Fasting)) H 02/08/24 06:09 Calcium 8.3 mg/dl (8.6-10.3) L 02/08/24 06:09 Total Bilirubin 0.7 mg/dl (0.2-1.0) 02/07/24 11:25 AST 16 U/L (13-39) 02/07/24 11:25 ALT 13 U/L (7-52) 02/07/24 11:25 Alkaline Phosphatase 68 U/L (34-104) 02/07/24 11:25 Total Protein 7.3 gm/dl (6.0-8.3) 02/07/24 11:25 Albumin 4.5 gm/dl (3.4-5.0) 02/07/24 11:25 Globulin 2.8 gm/dl (2.5-4.0) 02/07/24 11:25 Albumin/Globulin Ratio 1.6 (0.9-2) 02/07/24 11:25 Impressions Femur X-Ray 02/07/24 11:50 XR femur LT 2V routine CLINICAL HISTORY: Lower extremity trauma. COMPARISON: CT of the abdomen and pelvis January 07, 2018. FINDINGS: This exam is mildly compromised given difficulty positioning. There is an acute displaced proximal left femoral fracture which extends through the lesser trochanter as well as the intertrochanteric portion of the left femur. No definite involvement of the greater trochanter is noted. Associated impacted component of the left femoral neck would be difficult to exclude. There is no distal left femoral fracture. IMPRESSION: 1. Acute displaced proximal left femoral fracture which extends through the lesser trochanter and intertrochanteric portion of the left femur. Extension to the left femoral neck with impacted component would be difficult to exclude. 2. No distal left femoral fracture. ACT 112: Negative or not required by law. Electronically signed by: Alex Vu M.D. 02/07/2024 2:38 PM Pelvis X-Ray 02/07/24 11:50 XR pelvis 1-2V routine CLINICAL HISTORY: Hip trauma, fracture suspected, no prior imaging TECHNIQUE: A single frontal view of the pelvis was obtained. Comparison: None available at the time of this dictation. FINDINGS: There is foreshortening of the left femoral neck compatible with an impacted fracture. Posterior fixation hardware is seen in the lumbar spine. Soft tissue swelling is seen. IMPRESSION: Partial visualization of a left femoral fracture which is better seen on dedicated femur radiograph. ACT 112: Negative or not required by law. Electronically signed by: Lance Talbot M.D. 02/07/2024 2:41 PM Chest X-Ray 02/07/24 13:23 SINGLE VIEW CHEST CLINICAL HISTORY: Trauma. Femoral fracture. FINDINGS: An AP supine chest radiograph is compared to study dated 06/06/2021. Th e cardiomediastinal silhouette is top normal for projection noting atherosclerotic calcification of the thoracic aorta. The lungs and pleural spaces are clear. No pneumothorax is seen. The skeletal structures are osteopenic. The bony thorax is grossly intact. IMPRESSION: No acute cardiopulmonary abnormality. ACT 112: Negative or not required by law. Electronically signed by: Shankar Melton M.D. 02/07/2024 2:45 PM
[2024-02-08] MEDS ORDERED: fentaNYL citrate PF 100 MCG/2 ML VIAL ONE ×2 (11:28→13:46)
[2024-02-08] MEDS ORDERED: ALBUMIN HUMAN 5% 12.5 GM/250 ML VIAL IV ONE (12:10)
[2024-02-08] MEDS ORDERED: DROPERIDOL 5 MG/2 ML VIAL IV PRN (12:10)
[2024-02-08] MEDS ORDERED: HYDROmorphone INJ 1 MG/ML SYRINGE IV PRN (12:10)
[2024-02-08] MEDS ORDERED: ePHEDrine sulfate 50 MG/ML AMP IV PRN (12:10)
[2024-02-08] MEDS ORDERED: ATROPINE SULFATE 0.1 MG/ML 10ML SYR IV PRN (12:10)
--- NOTE | 2024-02-08 12:10 | Anesthesiology Consultation ---
Date of Service February 08, 2024 Assessment & Plan ASA ASA2 Proposed Anesthesia Anesthesia Type: General Risk / Benefits Reviewed With: PT / POA / Parent / Guardian, Accepts Plan and Informed Consent Obtained History Surgery Operation Date: 02/08/24 12:00 Proposed Procedures p Left Long Troch Nail - Bebeto Rodriguez MD Height/Weight Height: 5 ft Weight: 65.8 kg Allergies Allergy/AdvReac Type Severity Reaction Status Date / Time sulfamethoxazole AdvReac Mild GI UPSET Verified 01/31/24 11:47 [From Bactrim] trimethoprim [From Bactrim] AdvReac Mild GI UPSET Verified 01/31/24 11:47 Medications Home Medications Medication Instructions Recorded Confirmed Last Taken magnesium aspart,citrate,oxide 400 mg PO DAILY 10/07/21 02/07/24 Unknown vitamin E (dl, acetate) 450 mg 450 mg PO DAILY 10/07/21 02/07/24 Unknown (1,000 unit) capsule mecobalamin (vitamin B12) 1,000 1,000 mcg PO DAILY 02/01/23 02/07/24 Unknown mcg chewable tablet sertraline 100 mg tablet 100 mg PO QAM #90 tabs 04/08/23 02/07/24 Unknown simvastatin 20 mg tablet 20 mg PO HS #90 tabs 06/18/23 02/07/24 Unknown Active Medications Generic Name Dose Route Start Last Admin Trade Name Freq PRN Reason Stop Dose Admin Acetaminophen 1,000 mg in 100 mls @ 400 mls/hr 02/07/24 17:57 02/08/24 09:28 Ofirmev IV 02/10/24 17:56 Infused Q8H PRN Infusion Fever/Mild Pain (Pain 1,2,3) Magnesium Oxide 400 mg 02/08/24 09:00 02/08/24 09:29 Magnesium Oxide 400 Mg Tab PO 03/09/24 08:59 Not Given DAILY MARIA Morphine Sulfate 2 mg 02/07/24 23:55 02/08/24 09:18 Morphine Sulfate 2 Mg/Ml Carp IV 02/21/24 17:56 2 mg Q2H PRN Administration Severe Pain (7,8,9,10) on NRS Ondansetron HCl 4 mg 02/07/24 17:57 02/07/24 18:06 Ondansetron Inj 2 Mg/Ml 2 Ml Vial IV 03/08/24 17:56 4 mg Q6H PRN Administration Nausea Sertraline HCl 100 mg 02/08/24 09:00 02/08/24 09:29 Sertraline Hcl 100 Mg Tablet PO 03/09/24 08:59 Not Given QAM MARIA Simvastatin 20 mg 02/07/24 21:00 02/07/24 20:10 Simvastatin 20 Mg Tab PO 03/08/24 20:59 20 mg HS MARIA Administration NPO Date Last Intake of Fluids: 02/07/24 Time Last Intake of Fluids: 09:00 Date Last Intake of Solids: 02/07/24 Time Last Intake of Solids: 09:00 Past Medical History Medical History History of colon polyps FH: colon cancer Aortic regurgitation Echo 2012, asymptomatic History of oral lesions 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 Numbness and tingling RIGHT LE/BUTTOCK Hx SBO PARTIAL (2015)- MEDICALLY MANAGED Depression Anxiety Hyperlipidemia Exercise / Class Metabolic Activity II 4-5 Yardwork/Stairs/Walk up hill Past Family History Family History Mother , 83 Colon cancer Stroke Father , 86 Gastric cancer Aunt Breast cancer Other No family history of adverse response to anesthesia Denies family history of Ovarian cancer Prostate cancer Myocardial infarction Past Surgical History Surgical History History of lumbar spinal fusion (~10/2018) H/O wrist surgery H/O colonoscopy with polypectomy 02/2021 repeat 5 yrs History of abdominal surgery CYST EXCISION History of open reduction and internal fixation (ORIF) procedure LEFT DISTAL RADIUS Hx of tonsillectomy Hx of tubal ligation History of appendectomy Past Anesthesia History No Hx of Anesthesia Complications and No Family Hx of Anesthesia Complications History of PONV No Hx of PONV and No Hx of Motion Sickness Social History Smoking Status: Never smoker Do You Dip or Chew Tobacco: No Hx Alcohol Use: Yes Alcohol type: wine alcohol intake frequency: a few times a week Hx Substance Use: No substance use type: does not use Physical Exam Vital Signs Last Vital Signs Temp 36.7 C 02/08/24 11:43 Pulse 69 02/08/24 11:43 Resp 16 02/08/24 11:43 BP 132/63 02/08/24 11:43 Pulse Ox 97 02/08/24 11:43 O2 Del Method Room Air 02/08/24 11:43 Constitutional no acute distress ENMT Mouth: + small oral opening; no dentition abnormality Thyromental Distance: > or= 3.5 Finger Breadths Mallampati Class: IV Neck normal visual inspection Respiratory normal respiratory effort; no respiratory distress Auscultation: lungs clear to auscultation bilaterally Cardiovascular Rate/Rhythm: regular rate and regular rhythm Heart Sounds: no murmur Musculoskeletal Spine: normal cervical ROM Psychiatric Orientation: alert and oriented x 3 Testing Laboratory Results 02/08/24 06:09 02/08/24 06:09 Day of Procedure Evaluation. Date of Surgery February 08, 2024 Height/Weight Height: 5 ft Weight: 65.8 kg Vital Signs Last Vital Signs Temp 36.7 C 02/08/24 11:43 Pulse 69 02/08/24 11:43 Resp 16 02/08/24 11:43 BP 132/63 02/08/24 11:43 Pulse Ox 97 02/08/24 11:43 O2 Del Method Room Air 02/08/24 11:43 Allergies Allergy/AdvReac Type Severity Reaction Status Date / Time sulfamethoxazole AdvReac Mild GI UPSET Verified 01/31/24 11:47 [From Bactrim] trimethoprim [From Bactrim] AdvReac Mild GI UPSET Verified 01/31/24 11:47 Medications Home Medications Medication Instructions Recorded Confirmed Last Taken magnesium aspart,citrate,oxide 400 mg PO DAILY 10/07/21 02/07/24 Unknown vitamin E (dl, acetate) 450 mg 450 mg PO DAILY 10/07/21 02/07/24 Unknown (1,000 unit) capsule mecobalamin (vitamin B12) 1,000 1,000 mcg PO DAILY 02/01/23 02/07/24 Unknown mcg chewable tablet sertraline 100 mg tablet 100 mg PO QAM #90 tabs 04/08/23 02/07/24 Unknown simvastatin 20 mg tablet 20 mg PO HS #90 tabs 06/18/23 02/07/24 Unknown Active Medications Generic Name Dose Route Start Last Admin Trade Name Freq PRN Reason Stop Dose Admin Acetaminophen 1,000 mg in 100 mls @ 400 mls/hr 02/07/24 17:57 02/08/24 09:28 Ofirmev IV 02/10/24 17:56 Infused Q8H PRN Infusion Fever/Mild Pain (Pain 1,2,3) Magnesium Oxide 400 mg 02/08/24 09:00 02/08/24 09:29 Magnesium Oxide 400 Mg Tab PO 03/09/24 08:59 Not Given DAILY MARIA Morphine Sulfate 2 mg 02/07/24 23:55 02/08/24 09:18 Morphine Sulfate 2 Mg/Ml Carp IV 02/21/24 17:56 2 mg Q2H PRN Administration Severe Pain (7,8,9,10) on NRS Ondansetron HCl 4 mg 02/07/24 17:57 02/07/24 18:06 Ondansetron Inj 2 Mg/Ml 2 Ml Vial IV 03/08/24 17:56 4 mg Q6H PRN Administration Nausea Sertraline HCl 100 mg 02/08/24 09:00 02/08/24 09:29 Sertraline Hcl 100 Mg Tablet PO 03/09/24 08:59 Not Given QAM MARIA Simvastatin 20 mg 02/07/24 21:00 02/07/24 20:10 Simvastatin 20 Mg Tab PO 03/08/24 20:59 20 mg HS MARIA Administration Past Anesthesia History No Hx of Anesthesia Complications and No Family Hx of Anesthesia Complications History of PONV No Hx of PONV and No Hx of Motion Sickness NPO Date Last Intake of Fluids: 02/07/24 Time Last Intake of Fluids: 09:00 Date Last Intake of Solids: 02/07/24 Time Last Intake of Solids: 09:00 Home Medications Home Medications Medication Instructions Recorded Confirmed Last Taken magnesium aspart,citrate,oxide 400 mg PO DAILY 10/07/21 02/07/24 Unknown vitamin E (dl, acetate) 450 mg 450 mg PO DAILY 10/07/21 02/07/24 Unknown (1,000 unit) capsule mecobalamin (vitamin B12) 1,000 1,000 mcg PO DAILY 02/01/23 02/07/24 Unknown mcg chewable tablet sertraline 100 mg tablet 100 mg PO QAM #90 tabs 04/08/23 02/07/24 Unknown simvastatin 20 mg tablet 20 mg PO HS #90 tabs 06/18/23 02/07/24 Unknown Active Medications Generic Name Dose Route Start Last Admin Trade Name Freq PRN Reason Stop Dose Admin Acetaminophen 1,000 mg in 100 mls @ 400 mls/hr 02/07/24 17:57 02/08/24 09:28 Ofirmev IV 02/10/24 17:56 Infused Q8H PRN Infusion Fever/Mild Pain (Pain 1,2,3) Magnesium Oxide 400 mg 02/08/24 09:00 02/08/24 09:29 Magnesium Oxide 400 Mg Tab PO 03/09/24 08:59 Not Given DAILY MARIA Morphine Sulfate 2 mg 02/07/24 23:55 02/08/24 09:18 Morphine Sulfate 2 Mg/Ml Carp IV 02/21/24 17:56 2 mg Q2H PRN Administration Severe Pain (7,8,9,10) on NRS Ondansetron HCl 4 mg 02/07/24 17:57 02/07/24 18:06 Ondansetron Inj 2 Mg/Ml 2 Ml Vial IV 03/08/24 17:56 4 mg Q6H PRN Administration Nausea Sertraline HCl 100 mg 02/08/24 09:00 02/08/24 09:29 Sertraline Hcl 100 Mg Tablet PO 03/09/24 08:59 Not Given QAM [facility] Simvastatin 20 mg 02/07/24 21:00 02/07/24 20:10 Simvastatin 20 Mg Tab PO 03/08/24 20:59 20 mg HS MARIA Administration Exercise / Class Metabolic Activity Metabolic Activity: II 4-5 Yardwork/Stairs/Walk up hill Physical Exam Constitutional: no acute distress Mouth: + small oral opening; no dentition abnormality Thyromental Distance: > or= 3.5 Finger Breadths Mallampati Class: IV Neck: + visual inspection normal Respiratory: + respiratory effort normal and + clear to auscultation bilaterally; no respiratory distress Cardiovascular: + regular rate and + regular rhythm; no murmur Musculoskeletal: no limited cervical ROM Psychiatric: + alert and + oriented x 3 ASA ASA2 Proposed Anesthesia Proposed Anesthesia: General Risk / Benefits Reviewed With: PT / POA / Parent / Guardian, Accepts Plan and Informed Consent Obtained Additional Comments: videolaryngoscopy for intubation
[2024-02-08] MEDS: BUPIVACAINE 0.5 % 5 MG/1 ML MPF 30ML VIAL ONE (13:06)
[2024-02-08] MEDS ORDERED: LIDOCAINE 2% 2 ML VIAL/AMP(20MG/ML) INFIL ONE (14:17)
[2024-02-08] MEDS ORDERED: ROCURONIUM BROMIDE 10 MG/ML 5 ML VIAL IV ONE (14:17)
[2024-02-08] MEDS ORDERED: DEXAMETHASONE SOD INJ 4 MG/ML VIAL ONE (14:17)
[2024-02-08] MEDS ORDERED: ePHEDrine sulfate 50 MG/5 ML SYR ONE (14:17)
[2024-02-08] MEDS ORDERED: ONDANSETRON INJ 2 MG/ML 2 ML VIAL ONE (14:17)
[2024-02-08] MEDS ORDERED: SUGAMMADEX SODIUM 200 MG/2 ML VIAL IV ONE (14:17)
[2024-02-08] MEDS ORDERED: PROPOFOL IV EMULSION 10 MG/ML 20 ML VIAL IV ONE (14:17)
--- NOTE | 2024-02-08 14:31 | Operative Report ---
Post Operative Report Pre & Post Diagnosis Operation Date: 02/08/24 12:00 Preoperative diagnosis: Comminuted left intertrochanteric femur fracture. Postop diagnosis: Comminuted left intertrochanteric femur fracture I identified the patient and participated in the time-out.: Yes Procedure Operation Date: 02/08/24 12:00 open reduction internal fixation with an intramedullary nail of comminuted left intertrochanteric femur fracture Surgeon Bebeto Rodriguez MD Dump Motorman Deven Story DO and Arjun Parsons PA-C Estimated Blood Loss 100 Findings Consistent with Post-Op Diagnosis Specimens none Anesthesia Type General Complications none Disposition Disposition: Recovery Room Indications 78-year-old female, fell at home yesterday injuring her left hip. She was brought by ambulance to the emergency room where x-rays demonstrated a comminuted left intertrochanteric femur fracture. Patient was seen and examined the emergency room. I explained the diagnosis to her. Treatment options were reviewed. After reviewing all the risks and benefits of surgery, alternatives to surgery, and expected outcomes she elected to proceed with surgery. All questions were answered. Informed consent was signed. Description of Procedure Patient was identified in the preoperative holding area where her surgical site was marked. She was brought back to the operating room where general anesthesia was administered on the hospital bed. She was then carefully moved onto the fracture table. Perineal post was placed. She was gently slid down onto the perineal post. The nonoperative leg was flexed and AB ducted through the hip. Operative foot was padded and secured in the traction boot. Fluoroscopy was then brought in. The intertrochanteric femur fracture was then reduced using a combination of gross traction, and internal rotation of the leg. The surgical site was then prepped and draped in the usual sterile fashion. Prior to incision a multidisciplinary timeout was called. All in the room were in agreement. I began by making an incision approximately 6 cm above the tip of the greater trochanter for a distance of approximately 4 cm. I dissected down through subcutaneous tissues onto the fascia. Guidewire was then pierced through the fascia and the starting location was optimized on the AP and lateral fluoroscopic view. Once this was complete the guidewire was driven down to the level of the lesser trochanter. The fascia was then incised along the wire. The opening reamer was then reamed over the guidewire to the level of the lesser trochanter. Ball-tipped guidewire was then inserted in the femur all the way down to the top of the patella on the AP fluoroscopic view. We then sequentially reamed up to a 12.5 mm reamer at which time we had some cortical chatter. I elected to use a 11 mm diameter nail. We then measured the length of the nail and it was 360 mm. Therefore the [employer] TFN nail was opened up on the back table. It was assembled on the [employer] device. The nail was then carefully inserted over the top of the guidewire down to the appropriate level in order to secure the cephalomedullary screw in the center center position of the femoral head. A stab incision was then made on the lateral aspect of the femur to allow the guide sleeve to be placed directly down on the bone. The guidewire was then drilled up into the femoral head stopping just short of the subchondral bone. We took our measurement and it was 90 mm. Opening was reamer was used followed by the stepped drill. A 90 mm screw was then inserted up into the femoral head. Excellent fixation was obtained. At this point we elected to compress the fracture. Once this was complete we then locked the cephalomedullary screw from the top of the nail in a static position. Next, we turned our attention toward a distal cross locking screw. This was done through the dynamic hole. We used perfect circles technique. Screw measured 40 mm. Final fluoroscopic images were then obtained. I was happy with this position of the hardware and the reduction of the fracture. The top of the nail did sit a few millimeters above the tip of the trochanter as result of her coxa valga alignment of her hip. Fluoroscopic images were saved in the system. Wounds irrigated with copious amounts normal saline. The deep dermis was closed with 2-0 Vicryl sutures. [place] were used for the skin. 30 cc of half percent Naropin was spread throughout all 3 incision sites for postop pain control. Sterile dressings were applied. Patient was then awoke from anesthesia and transferred to recovery room in stable condition. Postoperative course: Patient will be readmitted to the internal medicine service. We will keep her touchdown weightbearing the first 2 weeks after surgery. Full hip range of motion is allowed immediately. Recommend aspirin for DVT prophylaxis. I attest to the content of the Intraoperative Record and any orders documented therein. Any exceptions are noted below.
--- NOTE | 2024-02-08 14:48 | Operative Report ---
Post Operative Report Pre & Post Diagnosis Operation Date: 02/08/24 12:00 Pre-Op Diagnosis: Left Proximal Femur Fracture Post-Op Diagnosis: Left Proximal Femur Fracture I identified the patient and participated in the time-out.: Yes Procedure Operation Date: 02/08/24 12:00 Actual Procedures p Left Femur Intratrochanteric Intramedullary Iam(Left) - Bebeto Rodriguez MD Surgeon Bebeto Rodriguez MD Senior Data Analyst Deven Story DO and Arjun Parsons PA-C Estimated Blood Loss 100 Findings Consistent with Post-Op Diagnosis Specimens None Description of Procedure Patient was brought to the operative suite, she underwent anesthesia. Patient underwent a closed reduction of her left intertrochanteric femur fracture. Left lower extremity was then prepped and draped in the usual sterile fashion. Surgical timeout was performed. Patient underwent internal fixation of her left intertrochanteric femur fracture with a cephalomedullary nail, please see Dr. Rodriguez's operative report for full details. I was present and assisted with patient positioning, soft tissue retraction, hardware placement, wound closure, postoperative dressing placement. Patient was awakened and taken to the recovery room in stable condition I attest to the content of the Intraoperative Record and any orders documented therein. Any exceptions are noted below.
--- NOTE | 2024-02-08 15:36 | Anesthesiology Progress Note ---
Date of Service February 08, 2024 Anesthesia Post Procedure Vital Signs Vital Signs: Temp Pulse Pulse Resp BP Pulse Ox Pulse Ox 02/08/24 15:20 36.3 C L 72 14 125/61 97 02/08/24 15:10 72 14 133/66 96 02/08/24 15:00 70 17 135/62 100 02/08/24 14:50 73 12 132/63 100 02/08/24 14:43 36.1 C L 75 18 138/65 96 02/08/24 11:43 36.7 C 69 16 132/63 97 02/08/24 07:22 36.5 C 77 16 116/65 98 02/07/24 20:26 36.7 C 74 16 131/66 98 02/07/24 20:15 02/07/24 17:58 36.6 C 73 16 174/74 H 99 02/07/24 17:57 97 02/07/24 17:19 74 20 152/75 H 97 02/07/24 16:26 76 20 140/62 99 O2 Del Method O2 Del Method O2 Flow Rate 02/08/24 15:20 Room Air 02/08/24 15:10 Room Air 02/08/24 15:00 Oxymask 3 02/08/24 14:50 Oxymask 7 02/08/24 14:43 Oxymask 7 02/08/24 11:43 Room Air 02/08/24 07:22 Room Air 02/07/24 20:26 Room Air 02/07/24 20:15 Room Air 02/07/24 17:58 Room Air 02/07/24 17:57 Room Air 02/07/24 17:19 Room Air 02/07/24 16:26 Room Air Pain Intensity Left Leg: Pain Intensity: 4 Transfer of Care Handoff Completed per policy Notes Mental Status: alert / awake / arousable and participated in evaluation Nausea / Vomiting: adequately controlled Pain: adequately controlled Airway Patency, RR, SpO2: stable & adequate BP & HR: stable & adequate Hydration State: stable & adequate Anesthetic Complications: no major complications apparent and Pt Satisfied with anesthetic care
--- NOTE | 2024-02-08 16:49 | Fluoroscopy Report ---
FL hip LT 2-3V CLINICAL HISTORY: ADD ON LEFT TROCHNAIL TECHNIQUE: 8 views were obtained with the C-arm in the OR with the above procedure. Total fluoroscopy time was 145 seconds. Radiation dose was 22.87 mGy. Comparison: Comparison is made to pelvis radiograph 02/07/2024 FINDINGS/IMPRESSION: Intraoperative images were obtained of left trochanteric nail placement Please correlate with intraoperative fluoroscopy and operative report. ACT 112: Negative or not required by law. Electronically signed by: Lance Talbot M.D. 02/08/2024 4:48 PM
[2024-02-08] MEDS: SODIUM CHLORIDE 0.9% 1,000 ML IV SCH (22:35)
[2024-02-09 07:18] LABS: BUN Creatinine Ratio 18.5 (10-20); Calcium 7.4 mg/dl (8.6-10.3); Creatinine Clr Calc Pharmacy 59.4 ml/min; Potassium 3.9 mmol/L (3.5-5.1)
--- NOTE | 2024-02-09 07:26 | Hospitalist Progress Note ---
Date of Service February 09, 2024 Assessment & Plan (1) Fracture of proximal end of left femur: Plan: Fall from 3 step ladder on 02/06 Left femur x-ray on arrival - acute displaced proximal left femur fracture Orthopedic surgery consulted: POD#1 s/p ORIF Pain control with IV acetaminophen and morphine as needed PT/OT evaluations 02/08, recommending short term rehab placement CM following for placement needs AM platelet count 129 - decreased but not significant drop from baseline, will start Aspirin for VTE ppx AM CBC, BMP (2) Anemia: Plan: Presumed blood loss anemia, AM Hgb 11.4 --> 8.1 with associated postural lightheadedness/hypotension - will give additional 1L LR @ 80ml/hour Afternoon H/H recheck stable with Hgb 7.9 Blood consent completed, consider transfusion for Hgb <7 (3) Fall: Plan: As above (4) Depression: Plan: Continue sertraline (5) Hyperlipidemia: Plan: Continue simvastatin (6) Coxa valga, congenital: (7) Osteoporosis: Plan: DXA 11/2023 with FRAX 10 year probability of major osteoporotic fracture of 32.8% and hip fracture 12.4% Recommend follow up in outpatient setting. Plan Disposition: [facility] Full code Diet: Regular VTE PPx: Aspirin Admission and Anticipated Discharge Date Admission Date: February 07, 2024 Supervising Physician Co-Signing Physician Notes Attending Physician Supervision Note: I independently interviewed and examined the patient and verified the putnam history and physical, reviewed labs and image studies and agree with findings and care plan noted above. s/p Femur fracture repair 02/08 - pain control/PT/OT/Aspirin for DVT proph Acute blood loss anemia - with orthostasis - fluid bolus given. Recheck h/h stable. Thrombocytopenia - Likely from hemorrhage. Will monitor with recheck labs. Osteoporosis - sees rheumatology - Dr. Richardson. Subjective Patient seen at bedside this morning, notes that pain is 8/10 but significantly improved relative to yesterday. Only received Tylenol overnight, last dose of morphine yesterday afternoon. Per nursing, patient become pale and diaphoretic when attempted standing - similar response when PT attempted to ambulate with patient, accompanied by transient hypotension. Denies CP, SOB, fevers/chills. Review of Systems Review of Systems: as per HPI Physical Exam Physical Exam: General: Alert and oriented. No acute distress Cardiac: Regular rate and rhythm, no murmurs appreciated Respiratory: Lungs clear to auscultation bilaterally, No increased work of breathing Abdominal: Soft, non-tender, non-distended. Extremities: distal LEs neurovascularly intact Results & Data Results & Data Vital Signs (Past 12 Hours) Vital Signs Temp Pulse Resp BP Pulse Ox O2 Del Method 02/09/24 04:08 36.6 C 85 16 114/62 97 Room Air 02/09/24 00:00 37.0 C 88 16 116/64 97 Room Air 02/08/24 20:00 Room Air Resident Activity Tracking Resident Involvement: Resident Care Provided Care Provided: Adult Hospital Medicine (7) Osteoporosis Osteoporosis type: unspecified Presence of current pathological fracture: unspecified Qualified Code(s): M81.0 - Age-related osteoporosis without current pathological fracture
[2024-02-09 07:39] LABS: Basophils # (auto) 0.01 K/uL (0.00-0.20); Basophils % (auto) 0.1 %; Hemoglobin 8.1 g/dl (12.0-16.0); Immature Granulocytes # (auto) 0.04 K/uL (0.01-0.20); Immature Granulocytes % (auto) 0.4 %; Lymphocytes # (auto) 1.33 K/uL (1.20-3.40); Lymphocytes % (auto) 14.5 %; Mean Corpuscular Hemoglobin 32.3 pg (25.0-34.0); Mean Corpuscular Hgb Conc 32.4 g/dL (32.0-36.0); Mean Corpuscular Volume 99.6 fL (80.0-100.0); Mean Platelet Volume 10.3 fL (9.4-12.4); Monocytes # (auto) 1.24 K/uL (0.11-0.59); Monocytes % (auto) 13.6 %; Neutrophils # (auto) 6.53 K/uL (1.40-6.50); Neutrophils % (auto) 71.4 %; Platelet Count 129 K/uL (130-400); RDW Coefficient of Variation 14.3 % (11.5-14.5); RDW Standard Deviation 52.3 fL (36.4-46.3); Red Blood Count 2.51 M/uL (4.20-5.40); White Blood Count 9.15 K/ul (4.8-10.8)
[2024-02-09] MEDS ORDERED: INFLUENZA VACC TS2024-25(65y+)/PF (IIV3) 0.5mL Syr IM ONE (08:00)
[2024-02-09] MEDS: LACTATED RINGER'S 250 ML IV ONE (11:05)
--- NOTE | 2024-02-09 11:09 | Orthopedic Progress Note ---
Date of Service February 09, 2024 Assessment & Plan (1) Fracture of proximal end of left femur: Plan: POD 1-status post open reduction internal fixation left femur fracture with Dr. Rodriguez May be toe-touch weightbearing for the next 2 weeks with the assistance of a walker. Ice to left thigh as needed for pain or swelling. Elevate left lower extremity above heart to relieve pain and swelling. May do full range of motion of her left hip, knee and ankle as tolerated. Physical therapy and Occupational Therapy to start today. Regular diet as ordered. Pain medication as needed. Case management for disposition. Patient most likely will need rehab placement. Will discuss findings with Dr. Rodriguez. Will continue to follow. Call with any problems, questions or concerns. Admission and Anticipated Discharge Date Admission Date: February 07, 2024 Subjective Patient is doing well, resting in bed. States that she has a constant ache in her left thigh. Denies any pain anywhere else. Tolerated breakfast this morning. No postoperative chest pain, shortness of breath, lightheadedness or dizziness. She has not been out of bed as of yet. Physical Exam Musculoskeletal: Exam of her left lower extremity: She has no distal edema. No calf discomfort with palpation. Calf is supple. Full ankle range of motion with dorsiflexion, plantarflexion, inversion and eversion. Distal pulses trace. Toes move freely. Capillary refill is brisk. Strength is 5/5. She is unable to tolerate any knee range of motion. No straight leg raise performed today. Left hip incision dressings are clean, dry and intact. They were left in place today. Mild swelling within the thigh itself. Compartments are soft. No evidence of hematoma or ecchymosis. Results & Data Vital Signs (Past 12 Hours) Vital Signs Temp Pulse Resp BP Pulse Ox O2 Del Method 02/09/24 11:04 36.9 C 75 17 101/62 94 Room Air 02/09/24 09:57 89 102/57 L 02/09/24 07:29 36.8 C 79 16 114/65 94 Room Air 02/09/24 04:08 36.6 C 85 16 114/62 97 Room Air 02/09/24 00:00 37.0 C 88 16 116/64 97 Room Air Laboratory Results 02/09/24 Range/Units 06:24 WBC 9.15 (4.8-10.8) K/ul RBC 2.51 L (4.20-5.40) M/uL Hgb 8.1 L D (12.0-16.0) g/dl Hct 25.0 L (37.0-47.0) % MCV 99.6 (80.0-100.0) fL MCH 32.3 (25.0-34.0) pg MCHC 32.4 (32.0-36.0) g/dL RDW Std Deviation 52.3 H (36.4-46.3) fL RDW Coeff of Estella 14.3 (11.5-14.5) % Plt Count 129 L (130-400) K/uL MPV 10.3 (9.4-12.4) fL Immature Gran % (Auto) 0.4 % Neut % (Auto) 71.4 % Lymph % (Auto) 14.5 % [place] % (Auto) 13.6 % Eos % (Auto) 0.0 % Baso % (Auto) 0.1 % Neut # (Auto) 6.53 H (1.40-6.50) K/uL Lymph # (Auto) 1.33 (1.20-3.40) K/uL [place] # (Auto) 1.24 H (0.11-0.59) K/uL Eos # (Auto) 0.00 (0.00-0.50) K/uL Baso # (Auto) 0.01 (0.00-0.20) K/uL Immature Gran # (Auto) 0.04 (0.01-0.20) K/uL Sodium 139 (136-145) mmol/L Potassium 3.9 (3.5-5.1) mmol/L Chloride 108 H (98-107) mmol/L Carbon Dioxide 25 (21-32) mmol/L Anion Gap 6 (3-11) BUN 12 (6-23) mg/dl Creatinine 0.65 (0.6-1.2) mg/dl Est Cr Clr Drug Dosing 59.4 ml/min eGFR 89.51 BUN/Creatinine Ratio 18.5 (10-20) Glucose 116 H (70-99(Fasting)) mg/dl Calcium 7.4 L (8.6-10.3) mg/dl
[2024-02-09 12:32] LABS: Hemoglobin 7.9 g/dl (12.0-16.0)
[2024-02-09] MEDS: LACTATED RINGER'S 1,000 ML IV SCH (13:53)
[2024-02-09] MEDS: oxyCODONE HCL IR 5 MG TAB (IMMEDIATE RELEASE) PO PRN (13:56)
[2024-02-09] MEDS: ASPIRIN 81 MG ECTAB PO SCH (14:09)
[2024-02-09] MEDS: ACETAMINOPHEN 325 MG TAB PO PRN (22:21)
[2024-02-10 07:03] LABS: Basophils # (auto) 0.02 K/uL (0.00-0.20); Basophils % (auto) 0.2 %; Eosinophils # (auto) 0.15 K/uL (0.00-0.50); Eosinophils % (auto) 1.8 %; Hematocrit (blood only) 21.8 % (37.0-47.0); Hemoglobin 7.2 g/dl (12.0-16.0); Immature Granulocytes # (auto) 0.03 K/uL (0.01-0.20); Immature Granulocytes % (auto) 0.4 %; Lymphocytes # (auto) 1.59 K/uL (1.20-3.40); Lymphocytes % (auto) 19.5 %; Mean Corpuscular Hemoglobin 32.7 pg (25.0-34.0); Mean Corpuscular Volume 99.1 fL (80.0-100.0); Mean Platelet Volume 10.1 fL (9.4-12.4); Monocytes # (auto) 1.11 K/uL (0.11-0.59); Monocytes % (auto) 13.6 %; Neutrophils # (auto) 5.24 K/uL (1.40-6.50); Neutrophils % (auto) 64.5 %; Platelet Count 120 K/uL (130-400); RDW Coefficient of Variation 14.4 % (11.5-14.5); RDW Standard Deviation 51.6 fL (36.4-46.3); White Blood Count 8.14 K/ul (4.8-10.8)
[2024-02-10 07:19] LABS: BUN Creatinine Ratio 17.7 (10-20); Calcium 7.6 mg/dl (8.6-10.3); Creatinine Clr Calc Pharmacy 63.4 ml/min; Potassium 4.3 mmol/L (3.5-5.1)
--- NOTE | 2024-02-10 07:27 | Hospitalist Progress Note ---
Date of Service February 10, 2024 Assessment & Plan (1) Fracture of proximal end of left femur: Plan: Fall from 3 step ladder on 02/06 Left femur x-ray on arrival - acute displaced proximal left femur fracture Orthopedic surgery consulted: POD#2 s/p ORIF Pain control with IV acetaminophen, IV morphine, PO oxycodone as needed PT/OT evaluations completed, recommending short term rehab placement CM following for placement needs, tentative plan for discharge to [facility] 02/10 if hemoglobin stable. Continue Aspirin for VTE ppx AM CBC, BMP (2) Anemia: Plan: Presumed blood loss anemia, Hgb 11.4 --> 8.1--> 7.2 with associated postural lightheadedness/hypotension - Will recheck H&H, repeat pending - if continued drop, will transfuse 1 unit pRBCs Blood consent completed 02/08, consider transfusion for Hgb <7 (3) Fall: Plan: As above (4) Depression: Plan: Continue sertraline (5) Hyperlipidemia: Plan: Continue simvastatin (6) Coxa valga, congenital: (7) Osteoporosis: Plan: DXA 11/2023 with FRAX 10 year probability of major osteoporotic fracture of 32.8% and hip fracture 12.4% Recommend follow up in outpatient setting. Plan Disposition: [facility] Full code Diet: Regular VTE PPx: Aspirin Admission and Anticipated Discharge Date Admission Date: February 07, 2024 Supervising Physician Co-Signing Physician Notes Attending Physician Supervision Note: I independently interviewed and examined the patient and verified the putnam history and physical, reviewed labs and image studies and agree with findings and care plan noted above. s/p Femur fracture repair 02/08 - pain control/PT/OT/Aspirin for DVT proph Acute blood loss anemia - hb stable above 7. Symptoms improved with IV hydration. If orthostasis symptoms recurs - will transfuse one unit before discharge. Thrombocytopenia - Low baseline. Counts stable. Osteoporosis - sees rheumatology - Dr. Richardson. Subjective Patient seen at bedside this morning, notes that pain is improving, 4/10 at rest and 8/10 with movement. Overnight normotensive and without tachycardia. Per nursing, patient had mild, transient dizziness when working with PT, associated decrease in BP to 96/60 - much less symptomatic compared to yesterday. Denies CP, SOB, fevers/chills. Review of Systems Review of Systems: as per HPI Physical Exam Physical Exam: General: Alert and oriented. No acute distress Cardiac: Regular rate and rhythm, no murmurs appreciated Respiratory: Lungs clear to auscultation bilaterally, No increased work of breathing Abdominal: Soft, non-tender, non-distended. Extremities: distal LEs neurovascularly intact Results & Data Results & Data Vital Signs (Past 12 Hours) Vital Signs Temp Pulse Resp BP Pulse Ox O2 Del Method 02/09/24 22:19 89 18 128/55 L 98 Room Air 02/09/24 20:15 36.7 C 86 16 148/65 H 94 Room Air 02/09/24 20:00 Room Air Resident Activity Tracking Resident Involvement: Resident Care Provided Care Provided: Adult Hospital Medicine (7) Osteoporosis Osteoporosis type: unspecified Presence of current pathological fracture: unspecified Qualified Code(s): M81.0 - Age-related osteoporosis without current pathological fracture
--- NOTE | 2024-02-10 09:17 | Orthopedic Progress Note ---
Date of Service February 10, 2024 Assessment & Plan (1) Fracture of proximal end of left femur: Plan: POD 2-status post open reduction internal fixation left femur fracture with Dr. Rodriguez Continue toe-touch weightbearing for the next 2 weeks with the assistance of a walker. Ice to left thigh as needed for pain or swelling. Elevate left lower extremity above heart to relieve pain and swelling. May do full range of motion of her left hip, knee and ankle as tolerated. Continue daily physical therapy and Occupational Therapy. Continue regular diet Oral and IV pain medication as needed. Case management will work on disposition. Patient most likely will need rehab placement. Will discuss findings with Dr. Rodriguez. Will continue to follow. Call with any problems, questions or concerns. Admission and Anticipated Discharge Date Admission Date: February 07, 2024 Subjective This 78-year-old female who is seen at bedside this morning. She is 2 days status post left hip ORIF. She states her pain continues and is significant at times. She received Tylenol this morning. She denies CP, SOB, fevers/chills, nausea/vomiting, or abdominal pain. She is wondering if she will have to go to rehab or if she can just go back home. Nursing staff is with her this morning. Physical Exam Physical Exam: General: Well-developed, elderly female, in no acute distress. Laying in bed. Alert and oriented. Conversive. Skin: Warm dry with good turgor. No rashes. Postsurgical dressings are in place on the left thigh. They are clean, dry, and intact. There is no bleeding through the gauze. Minimal ecchymosis and edema at this point. Musculoskeletal: The patient has intact motor function of her ankles and toes. She is able to perform a heel slide but there is limited active motion of the hip secondary to pain. She also has discomfort with passive internal and external rotation with logrolling. Neurologic: Gross sensation is intact across all aspects of the left leg by soft touch. Peripheral pulses are 2+. Results & Data Vital Signs (Past 12 Hours) Vital Signs Temp Pulse Resp BP Pulse Ox O2 Del Method 02/10/24 07:38 36.7 C 79 16 114/67 95 Room Air 02/09/24 22:19 89 18 128/55 L 98 Room Air Laboratory Results CBC obtained this morning shows a white count of 8.14. H&H of 7.2 and 21.8. Platelets 220,000. PRP obtained this morning shows sodium 138, potassium 4.3, chloride 108, chloride 26. BUN of 11 with creatinine normal at 0.62. Glucose was 107 this morning. Calcium is low at 7.6.
[2024-02-10 13:31] LABS: Hematocrit (blood only) 22.7 % (37.0-47.0); Hemoglobin 7.5 g/dl (12.0-16.0)
[2024-02-10] MEDS: FERROUS SULFATE 325 MG TAB PO SCH (18:21)
[2024-02-10] MEDS ORDERED: POLYETHYLENE (MIRALAX) 17 GM PACK PO PRN (18:25)
[2024-02-10] MEDS ORDERED: DOCUSATE SODIUM 100 MG CAP PO PRN (18:25)
[2024-02-10] MEDS: FAMOTIDINE 40 MG TABLET PO ONE (19:31)
[2024-02-11 07:01] LABS: Hemoglobin 7.4 g/dl (12.0-16.0); Mean Corpuscular Hemoglobin 32.5 pg (25.0-34.0); Mean Corpuscular Hgb Conc 32.2 g/dL (32.0-36.0); Mean Corpuscular Volume 100.9 fL (80.0-100.0); Mean Platelet Volume 10.1 fL (9.4-12.4); Platelet Count 146 K/uL (130-400); RDW Coefficient of Variation 13.8 % (11.5-14.5); RDW Standard Deviation 50.8 fL (36.4-46.3); Red Blood Count 2.28 M/uL (4.20-5.40); White Blood Count 7.59 K/ul (4.8-10.8)
[2024-02-11 07:14] VITALS: BP 125/72; PULSE 76; RESP 16; TEMP 97.9; O2SAT 97
[2024-02-11 07:23] LABS: BUN Creatinine Ratio 20.8 (10-20); Creatinine Clr Calc Pharmacy 74.2 ml/min; Potassium 4.6 mmol/L (3.5-5.1)
--- NOTE | 2024-02-11 07:23 | Hospitalist Progress Note ---
Date of Service February 11, 2024 Assessment & Plan (1) Fracture of proximal end of left femur: Plan: Fall from 3 step ladder on 02/06 Left femur x-ray on arrival - acute displaced proximal left femur fracture Orthopedic surgery consulted: POD#2 s/p ORIF Pain control with IV acetaminophen, IV morphine, PO oxycodone as needed PT/OT evaluations completed, recommending short term rehab placement CM following for placement needs, tentative plan for discharge to [facility] 02/10 if hemoglobin stable. Continue Aspirin for VTE ppx AM CBC, BMP (2) Anemia: Plan: Presumed blood loss anemia, Hgb 11.4 --> 8.1--> 7.2 with associated postural lightheadedness/hypotension - Will recheck H&H, repeat pending - if continued drop, will transfuse 1 unit pRBCs Blood consent completed 02/08, consider transfusion for Hgb <7 (3) Fall: Plan: As above (4) Depression: Plan: Continue sertraline (5) Hyperlipidemia: Plan: Continue simvastatin (6) Coxa valga, congenital: (7) Osteoporosis: Plan: DXA 11/2023 with FRAX 10 year probability of major osteoporotic fracture of 32.8% and hip fracture 12.4% Recommend follow up in outpatient setting. Plan Disposition: [facility] Full code Diet: Regular VTE PPx: Aspirin Admission and Anticipated Discharge Date Admission Date: February 07, 2024 Subjective Patient seen at bedside this morning, notes that pain is improving, 4/10 at rest and 8/10 with movement. Overnight normotensive and without tachycardia. Per nursing, patient had mild, transient dizziness when working with PT, associated decrease in BP to 96/60 - much less symptomatic compared to yesterday. Denies CP, SOB, fevers/chills. Review of Systems Review of Systems: as per HPI Physical Exam Physical Exam: General: Alert and oriented. No acute distress Cardiac: Regular rate and rhythm, no murmurs appreciated Respiratory: Lungs clear to auscultation bilaterally, No increased work of breathing Abdominal: Soft, non-tender, non-distended. Extremities: distal LEs neurovascularly intact Results & Data Results & Data Vital Signs (Past 12 Hours) Vital Signs Temp Pulse Resp BP Pulse Ox O2 Del Method 02/11/24 07:12 36.6 C 76 16 125/72 97 Room Air 02/10/24 19:44 36.8 C 91 H 12 125/66 94 Room Air (7) Osteoporosis Osteoporosis type: unspecified Presence of current pathological fracture: unspecified Qualified Code(s): M81.0 - Age-related osteoporosis without current pathological fracture
--- NOTE | 2024-02-11 09:28 | Orthopedic Progress Note ---
Date of Service February 11, 2024 Assessment & Plan (1) Fracture of proximal end of left femur: Plan: POD 3-status post open reduction internal fixation left femur fracture with trochanteric nailing Continue toe-touch weightbearing for the next 2 weeks with the assistance of a walker. Ice to left thigh as needed for pain or swelling. Elevate left lower extremity above heart to relieve pain and swelling. May do full range of motion of her left hip, knee and ankle as tolerated. Continue daily physical therapy and Occupational Therapy. Continue regular diet Oral and IV pain medication as needed. Case management will work on disposition. Patient most likely will need rehab placement. Patient will need a 2-week follow-up at [facility] orthopedics With questions contact clinic at [phone] Admission and Anticipated Discharge Date Admission Date: February 07, 2024 Subjective This 78-year-old female is day 3 status post left hip fracture trochanteric nailing. Patient states that she is doing fairly well. She does have difficulty transitioning from a seated to a standing position and is experiencing significant pain. She states as long as the oxycodone is given on a timely basis she is able to tolerate it. Patient states that her plan is to go to rehab for few weeks following discharge from the hospital. Currently she denies chest pain, shortness of breath, fever, chills, sweats, numbness or tingling in her left lower extremity. She also denies nausea, vomiting, diarrhea or difficulty voiding. Review of Systems Review of Systems: All systems reviewed & are unremarkable except as noted in Subjective Physical Exam Physical Exam: Left lower extremity: Patient is able to transition from a seated to a standing position with slight difficulty. Her dressings are clean dry and intact and left in place. Patient is able to perform active straight leg raise test. She is able to actively dorsi and plantarflex her foot. She has some slight dis comfort with logroll testing. She tolerates passive hip flexion near 90 degrees but experiences tensile pain with light passive internal and external hip rotation. She is able to detect light sensation to touch over the pads of her digits. She is neurovascularly intact in the left lower extremity. Results & Data Vital Signs (Past 12 Hours) Vital Signs Temp Pulse Resp BP Pulse Ox O2 Del Method 02/11/24 07:12 36.6 C 76 16 125/72 97 Room Air Diagnostic Findings Laboratory Results WBC 7.59 K/ul (4.8-10.8) 02/11/24 06:25 RBC 2.28 M/uL (4.20-5.40) L 02/11/24 06:25 Hgb 7.4 g/dl (12.0-16.0) L 02/11/24 06:25 Hct 23.0 % (37.0-47.0) L 02/11/24 06:25 MCV 100.9 fL (80.0-100.0) H 02/11/24 06:25 MCH 32.5 pg (25.0-34.0) 02/11/24 06:25 MCHC 32.2 g/dL (32.0-36.0) 02/11/24 06:25 RDW Std Deviation 50.8 fL (36.4-46.3) H 02/11/24 06:25 RDW Coeff of Estella 13.8 % (11.5-14.5) 02/11/24 06:25 Plt Count 146 K/uL (130-400) 02/11/24 06:25 MPV 10.1 fL (9.4-12.4) 02/11/24 06:25 Immature Gran % (Auto) 0.4 % 02/10/24 06:32 Neut % (Auto) 64.5 % 02/10/24 06:32 Lymph % (Auto) 19.5 % 02/10/24 06:32 [place] % (Auto) 13.6 % 02/10/24 06:32 Eos % (Auto) 1.8 % 02/10/24 06:32 Baso % (Auto) 0.2 % 02/10/24 06:32 Neut # (Auto) 5.24 K/uL (1.40-6.50) 02/10/24 06:32 Lymph # (Auto) 1.59 K/uL (1.20-3.40) 02/10/24 06:32 Bradley # (Auto) 1.11 K/uL (0.11-0.59) H 02/10/24 06:32 Eos # (Auto) 0.15 K/uL (0.00-0.50) 02/10/24 06:32 Baso # (Auto) 0.02 K/uL (0.00-0.20) 02/10/24 06:32 Immature Gran # (Auto) 0.03 K/uL (0.01-0.20) 02/10/24 06:32 Sodium 137 mmol/L (136-145) 02/11/24 06:25 Potassium 4.6 mmol/L (3.5-5.1) 02/11/24 06:25 Chloride 107 mmol/L (98-107) 02/11/24 06:25 Carbon Dioxide 26 mmol/L (21-32) 02/11/24 06:25 Anion Gap 4 (3-11) 02/11/24 06:25 BUN 11 mg/dl (6-23) 02/11/24 06:25 Creatinine 0.53 mg/dl (0.6-1.2) L 02/11/24 06:25 Est Cr Clr Drug Dosing 74.2 ml/min 02/11/24 06:25 eGFR 94.02 02/11/24 06:25 BUN/Creatinine Ratio 20.8 (10-20) H 02/11/24 06:25 Glucose 111 mg/dl (70-99(Fasting)) H 02/11/24 06:25 Calcium 8.0 mg/dl (8.6-10.3) L 02/11/24 06:25 Total Bilirubin 0.7 mg/dl (0.2-1.0) 02/07/24 11:25 AST 16 U/L (13-39) 02/07/24 11:25 ALT 13 U/L (7-52) 02/07/24 11:25 Alkaline Phosphatase 68 U/L (34-104) 02/07/24 11:25 Total Protein 7.3 gm/dl (6.0-8.3) 02/07/24 11:25 Albumin 4.5 gm/dl (3.4-5.0) 02/07/24 11:25 Globulin 2.8 gm/dl (2.5-4.0) 02/07/24 11:25 Albumin/Globulin Ratio 1.6 (0.9-2) 02/07/24 11:25 Blood Type A Positive 02/10/24 10:17 Antibody Screen NEGATIVE 02/10/24 10:17 Impressions Femur X-Ray 02/07/24 11:50 XR femur LT 2V routine CLINICAL HISTORY: Lower extremity trauma. COMPARISON: CT of the abdomen and pelvis January 07, 2018. FINDINGS: This exam is mildly compromised given difficulty positioning. There is an acute displaced proximal left femoral fracture which extends through the lesser trochanter as well as the intertrochanteric portion of the left femur. No definite involvement of the greater trochanter is noted. Associated impacted component of the left femoral neck would be difficult to exclude. There is no distal left femoral fracture. IMPRESSION: 1. Acute displaced proximal left femoral fracture which extends through the lesser trochanter and intertrochanteric portion of the left femur. Extension to the left femoral neck with impacted component would be difficult to exclude. 2. No distal left femoral fracture. ACT 112: Negative or not required by law. Electronically signed by: Alex Vu M.D. 02/07/2024 2:38 PM Pelvis X-Ray 02/07/24 11:50 XR pelvis 1-2V routine CLINICAL HISTORY: Hip trauma, fracture suspected, no prior imaging TECHNIQUE: A single frontal view of the pelvis was obtained. Comparison: None available at the time of this dictation. FINDINGS: There is foreshortening of the left femoral neck compatible with an impacted fracture. Posterior fixation hardware is seen in the lumbar spine. Soft tissue swelling is seen. IMPRESSION: Partial visualization of a left femoral fracture which is better seen on dedicated femur radiograph. ACT 112: Negative or not required by law. Electronically signed by: Lance Talbot M.D. 02/07/2024 2:41 PM Chest X-Ray 02/07/24 13:23 SINGLE VIEW CHEST CLINICAL HISTORY: Trauma. Femoral fracture. FINDINGS: An AP supine chest radiograph is compared to study dated 06/06/2021. The cardiomediastinal silhouette is top normal for projection noting atherosclerotic calcification of the thoracic aorta. The lungs and pleural spaces are clear. No pneumothorax is seen. The skeletal structures are osteopenic. The bony thorax is grossly intact. IMPRESSION: No acute cardiopulmonary abnormality. ACT 112: Negative or not required by law. Electronically signed by: Shankar Melton M.D. 02/07/2024 2:45 PM Hip X-Ray 02/08/24 00:00 FL hip LT 2-3V CLINICAL HISTORY: ADD ON LEFT TROCHNAIL TECHNIQUE: 8 views were obtained with the C-arm in the OR with the above procedure. Total fluoroscopy time was 145 seconds. Radiation dose was 22.87 mGy. Comparison: Comparison is made to pelvis radiograph 02/07/2024 FINDINGS/IMPRESSION: Intraoperative images were obtained of left trochanteric nail placement Please correlate with intraoperative fluoroscopy and operative report. ACT 112: Negative or not required by law. Electronically signed by: Lance Talbot M.D. 02/08/2024 4:48 PM
[2024-02-11] MEDS: ACETAMINOPHEN 325 MG TAB PO SCH (12:54)
--- NOTE | 2024-02-11 15:23 | Discharge Summary ---
Date of Service February 11, 2024 Admission HPI Per Admitting Provider Vicky is a 78-year-old female with PMH of osteoarthritis, fibromyalgia, spinal stenosis, HLD, depression, and GERD. She presented on 02/06 after sustaining a fall off of a 3 step ladder. Patient reports this was an unwitnessed fall. She was trying to hang something up on a shelf when she fell onto her left side. No LOC. No head strike. She denies blood thinner usage. She does have a history of falls, but denies any prior injuries to her left leg. She does not ambulate with a walker or cane at baseline. No hardware in the left leg, but does have history of lower back surgery. On arrival she endorses 8/10 pain in her left hip/leg when she is not moving, and 10/10 pain when she is moving. No radiation down the leg or into the upper back. She did not take any pain medicine prior to coming in. She characterizes it as a constant aching pain with intermittent sharp pain like a "knife" into her leg. Patient took her regular morning medications today; no recent change in medications. She lives at home with her . She denies smoking, tobacco use, recent alcohol use. No past cardiac hx. No PMHx of GA, stroke, or CHF. Patient's vitals are stable at time of admission. ED course: Fentanyl 50 mcg IV x 2 Acetaminophen 1000 g IV ROS: Patient endorses severe left upper leg pain, Patient denies fever, chills, night-sweats, dizziness/lightheadedness, MEHTA, chest pain, SOB, abdominal pain, nausea, vomiting, changes in urinary/bowel habits, or numbness/tingling in the left leg. Admission Exam Per Admitting Provider General: Moderate physical distress secondary to left leg pain; non-toxic appearing; frail appearing; cooperative; SpO2 99% on RA HEENT: normocephalic, atraumatic; no scleral icterus; PERRLA; vision and hearing grossly intact Neck: supple; no lymphadenopathy; trachea midline Skin: warm, dry without signs of tenting; no cyanosis; no rashes, bruising, lesions, or erythema noted CV: chest wall NTP; RRR; S1/S2 normal; no murmurs/rubs/gallops; pulses intact and symmetric at radial, DP, and PT Lungs: no acute respiratory distress; symmetrical chest wall expansion; clear breath sounds across all lung [place] w/o adventitious sounds; no wheezing ABD: Soft, NTP; BS present; no rebound/guarding; no distention MSK: no tics or fasciculations; no edema noted in the LEs b/l, nonerythematous LLE: Patient demonstrates ability to wiggle toes/plantarflex/dorsiflex bilaterally; she is neurovascularly intact in lower extremities bilaterally assessed at DP/PT; left hip is NTP; no signs of active bleeding or bruising appreciated Neuro: A&Ox3; normal mood and affect; fluent speech; no focal deficits; she reports sensation is intact and symmetric in the lower extremities bilaterally assessed via light touch Principal Diagnosis Left hip fracture Discharge Exam General: Alert and oriented. No acute distress Cardiac: Regular rate and rhythm, no murmurs appreciated Respiratory: Lungs clear to auscultation bilaterally, No increased work of breathing Abdominal: Soft, non-tender, non-distended. Extremities: distal LEs neurovascularly intact Discharge Data Allergies Allergy/AdvReac Type Severity Reaction Status Date / Time sulfamethoxazole AdvReac Mild GI UPSET Verified 01/31/24 11:47 [From Bactrim] trimethoprim [From Bactrim] AdvReac Mild GI UPSET Verified 01/31/24 11:47 Consultations 02/07/24 15:20 ED Decision to Admit Stat 02/07/24 15:26 Consult Orthopedic Surgery Routine Procedures Performed Operation Date: 02/08/24 12:00 Actual Procedures p Left Femur Intratrochanteric Intramedullary Iam(Left) - Bebeto Rodriguez MD Ordered Studies 02/08/24 FL hip LT 2-3V Routine Hospital Course (1) Fracture of proximal end of left femur: (2) Anemia: (3) Fall: (4) Depression: (5) Hyperlipidemia: (6) Coxa valga, congenital: (7) Osteoporosis: Plan Fracture of proximal end of left femur: Fall from 3 step ladder on 02/06 Left femur x-ray on arrival showed acute displaced proximal left femur fracture Orthopedic surgery consulted s/p ORIF 02/08 Pain control: - recommend giving scheduled Tylenol until pain improving, may then switch to PRN - continue PO oxycodone 5mg Q4H prn Continue Aspirin twice a day for VTE ppx, discuss stop date with ortho at 2 week follow up (to take prilosec- omeprazole while on aspirin) Outpatient ortho follow up scheduled for 02/22 Anemia: Blood loss anemia secondary to surgery, Hgb 11.4 on admission, dropped to 7.2 with associated postural lightheadedness/hypotension Hgb stabilized, 7.4 on AM of discharge, associated lightheadedness/hypotension resolved. Recommend repeat CBC after discharge to ensure stability/improvement. Osteoporosis: DXA 11/2023 with FRAX 10 year probability of major osteoporotic fracture of 32.8% and hip fracture 12.4% Recommend follow up in outpatient setting. Depression: Continue sertraline Hyperlipidemia: Continue simvastatin Total Time Total Time Spent Total Time Spent (In Minutes): see attending attestation Discharge Plan Discharge Items Patient Disposition: Transfer Inpatient Rehab Fac Reason For Visit: LEFT PROXIMAL FEMUR FRACTURE Discharge Diagnosis: left proximal femur fracture Activity: Per Instructions section Weightbearing: Left toe touch Weightbearing Comment: with walker assistance Non-emergency contact: Surgeon Call non-emergency contact if: you have any medication questions, your symptoms worsen, your pain is not controlled, your temperature is above 101 and your wound has increased drainage Follow-up/Referrals: Aldo Hayden PA-C [Physician Car Salesperson] - 02/23/24 9:00 am SELF,REFERRED [Primary Care Provider] - Diet: Heart Healthy Addtl Attending Provider Instructions: Fracture of proximal end of left femur: Fall from 3 step ladder on 02/06 Left femur x-ray on arrival showed acute displaced proximal left femur fracture Orthopedic surgery consulted s/p ORIF 02/08 Pain control: - recommend giving scheduled Tylenol until pain improving, may then switch to PRN - continue PO oxycodone 5mg Q4H prn Continue Aspirin twice a day for VTE ppx, discuss stop date with ortho at 2 week follow up (to take prilosec- omeprazole while on aspirin) Outpatient ortho follow up scheduled for 02/22 Anemia: Blood loss anemia secondary to surgery, Hgb 11.4 on admission, dropped to 7.2 with associated postural lightheadedness/hypotension Hgb stabilized, 7.4 on AM of discharge, associated lightheadedness/hypotension resolved. Recommend repeat CBC after discharge to ensure stability/improvement. Osteoporosis: DXA 11/2023 with FRAX 10 year probability of major osteoporotic fracture of 32.8% and hip fracture 12.4% Recommend follow up in outpatient setting. Depression: Continue sertraline Hyperlipidemia: Continue simvastatin Addtl Anthropology Department Chair Provider Instructions: ORTHOPEDIC DISCHARGE INSTRUCTIONS -Toe touch Weight bearing with walker to assist in ambulation until 2 week post op appointment. May progress weight bearing at that time. -Use walker at all times when out of bed for assistance. -Physical therapy and occupational therapy. -No hip precautions necessary. May do range of motion to left hip, knee and ankle as tolerated. -Frequently ice, at least 20 minutes 5 times a day -Keep dressing clean and dry. Nursing may change dressing as needed. Okay to shower if has waterproof dressing in place. -DVT prophylaxis and pain control per primary team -Follow up in 2 weeks with [facility] for post op evaluation and suture/staple removal. Please call our office sooner @ [phone] if you have any questions or concerns Pending Studies at Discharge: No Stand-Alone Forms: My [facility] [address] Skilled Items Patient informed of condition?: Yes DNR: No Discharge Level of Care: Acute rehab Communicable Disease: No Discharge Prognosis: Improving Lines: None Urinary Catheter: No Medications and DC Order Prescriptions: New oxycodone 5 mg Tablet 5 mg PO Q6H PRN (Reason: pain) Qty: 10 0RF aspirin 81 mg tablet,delayed release (DR/EC) 81 mg PO BID Qty: 30 0RF omeprazole 20 mg capsule,delayed release(DR/EC) 20 mg PO DAILY Qty: 30 0RF Continued sertraline 100 mg tablet 100 mg PO QAM Qty: 90 3RF simvastatin 20 mg tablet 20 mg PO HS Qty: 90 3RF mecobalamin (vitamin B12) 1,000 mcg tablet,chewable 1,000 mcg PO DAILY magnesium aspart,citrate,oxide 400 mg magnesium capsule 400 mg PO DAILY vitamin E (dl, acetate) 450 mg (1,000 unit) capsule 450 mg PO DAILY Discharge Orders: Discharge Order (Routine); Ordered 02/11/24 Ordered By: Per Hair Admission Data Admit Date/Time: 02/07/24 15:42 Attending Provider: Terra Poole Admit Provider: Bebeto Fiore Primary Care Provider: SELF,REFERRED Other Providers: Bebeto Fiore; Bebeto Rodriguez Other Interventions: Discharge Summary Assessment (RN) Last Done: 02/11/24 14:33 Supervising Physician Co-Signing Physician Notes Attending Physician Supervision Note: I independently interviewed and examined the patient and verified the putnam history and physical, reviewed labs and image studies and agree with findings and care plan noted above. Fall/Femur # - s/p Femur fracture repair 02/08 - continue pain control/Aspirin BID for DVT proph (Prilosec for prophylaxis). [facility] for rehab. Acute blood loss anemia - symptomatic - improved with IVF hydration. hb stable above 7. Thrombocytopenia - resolved Osteoporosis - sees rheumatology - Dr. Richardson. Resident Activity Tracking Resident Involvement: Resident Care Provided Care Provided: Adult Hospital Medicine
== END 2024-02-11 16:11 | DRG 481 ==
LOC: ED 11:11 → 3E 15:42 → SUATTDRO 15:42 → 3E 17:58
DX: F32.A Depression, unspecified; Q65.81 Congenital coxa valga; E78.5 Hyperlipidemia, unspecified; K21.9 Gastro-esophageal reflux disease without esophagitis; M84.452A Pathological fracture, left femur, initial encounter for fracture; W11.XXXA Fall on and from ladder, initial encounter; D62 Acute posthemorrhagic anemia; M25.552 Pain in left hip; M79.7 Fibromyalgia; Z88.2 Allergy status to sulfonamides; Y92.009 Unspecified place in unspecified non-institutional (private) residence as the place of occurrence of the external cause; D69.6 Thrombocytopenia, unspecified; Z98.1 Arthrodesis status